=== PATIENT | female | born 1955 | race Caucasian/White ===

== ENCOUNTER 2018-12-15 05:32 | Day surgery (SDC) | payer OTHER ==
[2018-12-15] MEDS: Nozin Nasal Sanitizer NASBOTH SCH ×4 (05:57→21:01)
[2018-12-15] MEDS ORDERED: Gabapentin 300 MG Cap PO ONE (06:15)
[2018-12-15] MEDS ORDERED: Acetaminophen 500 MG Tab PO ONE (06:15)
[2018-12-15] MEDS ORDERED: Povidone-Iodine 10% Soln 118.25 ML Bottle ONE (06:18)
[2018-12-15] MEDS ORDERED: Lactated Ringers 1,000 ML IV SCH (06:30)
[2018-12-15] MEDS ORDERED: Propofol 200 MG/20 ML SDV ONE (07:24)
[2018-12-15] MEDS ORDERED: fentaNYL 100 MCG/2 ML SDV ONE (07:24)
[2018-12-15] MEDS ORDERED: Midazolam 1 MG/ML 2 ML SDV ONE (07:24)
[2018-12-15] MEDS ORDERED: Clindamycin Phosphate 900 MG in Sodium Chloride 0.9% 100 ML IV ONE (07:45)
[2018-12-15] MEDS ORDERED: Dexamethasone 4 MG/ML SDV ONE (08:10)
[2018-12-15] MEDS ORDERED: Ondansetron 4 MG/2 ML SDV ONE (08:10)
[2018-12-15] MEDS ORDERED: Acetaminophen 325 MG Tab PO PRN ×2 (09:24→09:52)
[2018-12-15] MEDS ORDERED: Sodium Chloride 0.9% 1,000 ML IV SCH (09:30)
[2018-12-15] MEDS ORDERED: Acetaminophen/oxyCODONE 325-5 MG Tab PO PRN (09:30)
[2018-12-15] MEDS ORDERED: traMADol 50 MG Tab PO PRN (09:31)
[2018-12-15] MEDS ORDERED: Morphine 2 MG/ML Syringe IVPUSH PRN ×2 (09:32→09:52)
[2018-12-15] MEDS ORDERED: Magnesium Hydroxide 400 MG/5 ML Susp 30 ML Cup PO PRN ×2 (09:33→09:52)
[2018-12-15] MEDS ORDERED: Docusate Sodium 100 MG Cap PO PRN ×2 (09:33→09:52)
[2018-12-15] MEDS: traMADol 50 MG Tab PO PRN ×2 (11:34→18:07)
[2018-12-15] MEDS: Sodium Chloride 0.9% 1,000 ML IV SCH ×2 (11:35→19:38)
--- NOTE | 2018-12-15 11:53 | CR ---
Knee 1V or 2V Rt CLINICAL HISTORY: 2 view FINDINGS: Patient is status post a total knee arthroplasty. Components appear well seated. There is some subcutaneous and intra-articular air. Impression: Status post total right knee arthroplasty
[2018-12-15] MEDS: Acetaminophen/oxyCODONE 325-5 MG Tab PO PRN ×2 (14:28→21:00)
[2018-12-15] MEDS: Metoprolol Succinate 25 MG Tab.ER PO SCH (18:36)
[2018-12-15] MEDS ORDERED: Nozin Nasal Sanitizer NASBOTH SCH (21:00)
[2018-12-15] MEDS: Clindamycin Phosphate 900 MG in Sodium Chloride 0.9% 100 ML IV SCH (21:15)
[2018-12-15] MEDS ORDERED: Ondansetron 4 MG/2 ML SDV IVPUSH PRN (21:32)
[2018-12-15] MEDS ORDERED: Sertraline 50 MG Tab PO ONE (22:22)
[2018-12-16] MEDS: traMADol 50 MG Tab PO PRN ×5 (00:59→22:13)
[2018-12-16] MEDS: Sodium Chloride 0.9% 1,000 ML IV SCH (04:16)
[2018-12-16] MEDS: Clindamycin Phosphate 900 MG in Sodium Chloride 0.9% 100 ML IV SCH ×2 (04:25→12:41)
[2018-12-16] MEDS: Enoxaparin 30 MG/0.3 ML Syringe SUBCUT SCH (08:37)
[2018-12-16] MEDS: Nozin Nasal Sanitizer NASBOTH SCH ×3 (08:37→22:08)
[2018-12-16] MEDS: Sertraline 25 MG Tab PO SCH (08:38)
[2018-12-16] MEDS ORDERED: Enoxaparin 30 MG/0.3 ML Syringe SUBCUT SCH (09:00)
[2018-12-16] MEDS ORDERED: Metoprolol Succinate 25 MG Tab.ER PO SCH (09:00)
[2018-12-16] MEDS ORDERED: Sertraline 25 MG Tab PO SCH ×3 (09:00→21:00)
[2018-12-16] MEDS: Metoprolol Succinate 25 MG Tab.ER PO SCH (09:35)
[2018-12-16] MEDS: Acetaminophen/oxyCODONE 325-5 MG Tab PO PRN (12:40)
[2018-12-17] MEDS: traMADol 50 MG Tab PO PRN (04:15)
[2018-12-17] MEDS: Nozin Nasal Sanitizer NASBOTH SCH (10:13)
[2018-12-17] MEDS: Enoxaparin 30 MG/0.3 ML Syringe SUBCUT SCH (10:15)
[2018-12-17] MEDS: Metoprolol Succinate 25 MG Tab.ER PO SCH (10:16)
[2018-12-17] MEDS: Sertraline 25 MG Tab PO SCH (10:17)
--- NOTE | 2018-12-17 11:29 | PCM.SURGPN ---
- General Info Date of Service: 12/16/18 Date of Surgery/Procedure: 12/15/18 POD#: 1 Post-Op Diagnosis: S/P Right Total Knee Arthroplasty - Review of Systems General: Reports: No Symptoms HEENT: Reports: No Symptoms Pulmonary: Reports: No Symptoms Cardiovascular: Reports: No Symptoms Gastrointestinal: Reports: Nausea Genitourinary: Reports: No Symptoms Musculoskeletal: Reports: Joint Pain Skin: Reports: No Symptoms Neurological: Reports: No Symptoms Psychiatric: Reports: No Symptoms - Patient Data Vitals - Most Recent: Last Vital Signs Temp 37.4 C 12/17/18 10:36 Pulse 84 12/17/18 10:36 Resp 16 12/17/18 10:36 BP 154/72 H 12/17/18 10:36 Pulse Ox 96 12/17/18 10:36 Weight - Most Recent: 114.895 kg I&O - Last 24 Hours: Intake & Output 12/16/18 12/17/18 12/17/18 22:59 06:59 14:59 Intake Total 680 350 Output Total 375 225 200 Balance 305 125 -200 Med Orders - Current: Current Medications Acetaminophen (Tylenol) 650 mg PO Q4H PRN PRN Reason: Pain/Fever Last Admin: 12/16/18 22:42 Dose: 650 mg Bandage/Support Products ( Nasal Bingo Floater) 1 applic NASBOTH BID [facility] Stop: 12/22/18 21:01 Last Admin: 12/17/18 10:13 Dose: 1 applic Docusate Sodium (Colace) 100 mg PO BID PRN PRN Reason: Constipation Last Admin: 12/16/18 22:13 Dose: 100 mg Enoxaparin Sodium (Lovenox) 30 mg SUBCUT DAILY [facility] Last Admin: 12/17/18 10:15 Dose: 30 mg Magnesium Hydroxide (Milk Of Magnesia) 30 ml PO Q8H PRN PRN Reason: Constipation Metoprolol Succinate (Toprol Xl) 25 mg PO DAILY [facility] Last Admin: 12/17/18 10:16 Dose: 25 mg Morphine Sulfate (Morphine) 2 mg IVPUSH Q1H PRN PRN Reason: Pain (severe 7-10) Ondansetron HCl (Zofran) 4 mg IVPUSH Q6H PRN PRN Reason: Nausea/Vomiting Oxycodone/Acetaminophen (Percocet 325-5 Mg) 1 - 2 tab PO Q6H PRN PRN Reason: Pain (severe 7-10) Last Admin: 12/16/18 12:40 Dose: 1 tab Sertraline HCl (Zoloft) 25 mg PO BEDTIME [facility] Last Admin: 12/16/18 22:08 Dose: 25 mg Sertraline HCl (Zoloft) 12.5 mg PO QAM [facility] Last Admin: 12/17/18 10:17 Dose: 12.5 mg Tramadol HCl (Ultram) 50 mg PO Q4H PRN PRN Reason: Pain (mild 1-3) Last Admin: 12/17/18 04:15 Dose: 50 mg Discontinued Medications Acetaminophen (Tylenol Extra Strength) 1,000 mg PO ONETIME ONE Stop: 12/15/18 06:16 Last Admin: 12/15/18 05:56 Dose: 1,000 mg Acetaminophen (Tylenol) 650 mg PO Q4H PRN PRN Reason: Pain/Fever Bandage/Support Products ( Nasal Bingo Floater) 1 applic NASBOTH BID [facility] Last Admin: 12/16/18 08:39 Dose: 1 applic Bandage/Support Products ( Nasal Bingo Floater) 1 applic NASBOTH BID [facility] Stop: 12/22/18 21:01 Dexamethasone (Dexamethasone) Confirm Administered Dose 4 mg .ROUTE .STK-MED ONE Stop: 12/15/18 08:11 Docusate Sodium (Colace) 100 mg PO BID PRN PRN Reason: Constipation Enoxaparin Sodium (Lovenox) 30 mg SUBCUT DAILY [facility] Fentanyl (Sublimaze) Confirm Administered Dose 100 mcg .ROUTE .STK-MED ONE Stop: 12/15/18 07:25 Gabapentin (Neurontin) 300 mg PO ONETIME ONE Stop: 12/15/18 06:16 Last Admin: 12/15/18 05:57 Dose: 300 mg Lactated Ringer's (Ringers, Lactated) 1,000 mls @ 75 mls/hr IV ASDIRECTED [facility] Last Admin: 12/15/18 05:57 Dose: 75 mls/hr Clindamycin Phosphate 900 mg/ (Sodium Chloride) 106 mls @ 200 mls/hr IV ONETIME ONE Stop: 12/15/18 08:16 Last Admin: 12/15/18 07:40 Dose: 200 mls/hr Sodium Chloride (Normal Saline) 1,000 mls @ 125 mls/hr IV ASDIRECTED [facility] Sodium Chloride (Normal Saline) 1,000 mls @ 125 mls/hr IV ASDIRECTED [facility] Last Admin: 12/16/18 04:16 Dose: 125 mls/hr Clindamycin Phosphate 900 mg/ (Sodium Chloride) 106 mls @ 200 mls/hr IV Q8H [facility] Stop: 12/16/18 13:32 Last Admin: 12/16/18 12:41 Dose: 200 mls/hr Magnesium Hydroxide (Milk Of Magnesia) 30 ml PO Q8H PRN PRN Reason: Constipation Metoprolol Succinate (Toprol Xl) 25 mg PO DAILY [facility] Midazolam HCl (Versed 1 Mg/Ml) Confirm Administered Dose 2 mg .ROUTE .STK-MED ONE Stop: 12/15/18 07:25 Morphine Sulfate (Morphine) 2 mg IVPUSH Q1H PRN PRN Reason: Pain (severe 7-10) Ondansetron HCl (Zofran) Confirm Administered Dose 4 mg .ROUTE .STK-MED ONE Stop: 12/15/18 08:11 Oxycodone/Acetaminophen (Percocet 325-5 Mg) 0 tab PO Q6H PRN PRN Reason: Pain (severe 7-10) Povidone Iodine (Betadine 10% Soln) Confirm Administered Dose 1 ml .ROUTE .STK- MED ONE Stop: 12/15/18 06:19 Last Admin: 12/15/18 08:22 Dose: 1 ml Propofol (Diprivan 20 Ml) Confirm Administered Dose 200 mg .ROUTE .STK-MED ONE Stop: 12/15/18 07:25 Sertraline HCl (Zoloft) 75 mg PO DAILY [facility] Sertraline HCl (Zoloft) 75 mg PO DAILY [facility] Sertraline HCl (Zoloft) 25 mg PO ONETIME ONE Stop: 12/15/18 22:23 Last Admin: 12/15/18 22:30 Dose: 25 mg Tramadol HCl (Ultram) 50 mg PO Q4H PRN PRN Reason: Pain (mild 1-3) - Exam Wound/Incisions: Dressing Dry and Intact General: Alert, Oriented HEENT: Pupils Equal Neck: Supple Cardiovascular: Regular Rate, Regular Rhythm GI/Abdominal Exam: Normal Bowel Sounds, Soft, Non-Tender, No Organomegaly, No Distention, No Abnormal Bruit, No Mass, Pelvis Stable Extremities: Joint Swelling, Other (Angela's negative) Skin: Warm, Dry, Intact Neurological: No New Focal Deficit Psy/Mental Status: Alert, Normal Affect, Normal Mood - Problem List & Annotations (1) Status post total right knee replacement SNOMED Code(s): 9309120816281, 1455952926416 Code(s): Z96.651 - PRESENCE OF RIGHT ARTIFICIAL KNEE JOINT Status: Acute Current Visit: Yes (2) Osteoarthritis of right knee SNOMED Code(s): 817326321779942 Code(s): M17.11 - UNILATERAL PRIMARY OSTEOARTHRITIS, RIGHT KNEE Status: Acute Current Visit: Yes Qualifiers: Osteoarthritis type: primary Qualified Code(s): M17.11 - Unilateral primary osteoarthritis, right knee - Problem List Review Problem List Initiated/Reviewed/Updated: Yes - My Orders Last 24 Hours: Active Orders 24 hr Category Date Time Status Admission Status [Patient Status] [ADT] Routine ADT 12/16/18 16:30 Active Ready for Discharge [RC] PER UNIT ROUTINE Care 12/17/18 09:28 Active Sertraline [Zoloft] Med 12/16/18 21:00 Active 25 mg PO BEDTIME Medication Orders Acetaminophen (Tylenol) 650 mg PO Q4H PRN PRN Reason: Pain/Fever Last Admin: 12/16/18 22:42 Dose: 650 mg Bandage/Support Products ( Nasal Bingo Floater) 1 applic NASBOTH BID [facility] Stop: 12/22/18 21:01 Last Admin: 12/17/18 10:13 Dose: 1 applic Admin: 12/16/18 22:08 Dose: 1 applic Admin: 12/16/18 08:37 Dose: Admin: 12/15/18 21:01 Dose: Not Given Docusate Sodium (Colace) 100 mg PO BID PRN PRN Reason: Constipation Last Admin: 12/16/18 22:13 Dose: 100 mg Enoxaparin Sodium (Lovenox) 30 mg SUBCUT DAILY [facility] Last Admin: 12/17/18 10:15 Dose: 30 mg Admin: 12/16/18 08:37 Dose: 30 mg Magnesium Hydroxide (Milk Of Magnesia) 30 ml PO Q8H PRN PRN Reason: Constipation Metoprolol Succinate (Toprol Xl) 25 mg PO DAILY [facility] Last Admin: 12/17/18 10:16 Dose: 25 mg Admin: 12/16/18 09:35 Dose: 25 mg Admin: 12/15/18 18:36 Dose: 25 mg Morphine Sulfate (Morphine) 2 mg IVPUSH Q1H PRN PRN Reason: Pain (severe 7-10) Ondansetron HCl (Zofran) 4 mg IVPUSH Q6H PRN PRN Reason: Nausea/Vomiting Oxycodone/Acetaminophen (Percocet 325-5 Mg) 1 - 2 tab PO Q6H PRN PRN Reason: Pain (severe 7-10) Last Admin: 12/16/18 12:40 Dose: 1 tab Admin: 12/15/18 21:00 Dose: 1 tab Admin: 12/15/18 14:28 Dose: 2 tab Sertraline HCl (Zoloft) 25 mg PO BEDTIME [facility] Last Admin: 12/16/18 22:08 Dose: 25 mg Sertraline HCl (Zoloft) 12.5 mg PO QAM [facility] Last Admin: 12/17/18 10:17 Dose: 12.5 mg Admin: 12/16/18 08:38 Dose: 12.5 mg Tramadol HCl (Ultram) 50 mg PO Q4H PRN PRN Reason: Pain (mild 1-3) Last Admin: 12/17/18 04:15 Dose: 50 mg Admin: 12/16/18 22:13 Dose: 50 mg Admin: 12/16/18 15:37 Dose: 50 mg Admin: 12/16/18 10:25 Dose: 50 mg Admin: 12/16/18 05:52 Dose: 50 mg Admin: 12/16/18 00:59 Dose: 50 mg Admin: 12/15/18 18:07 Dose: 50 mg Admin: 12/15/18 11:34 Dose: 50 mg - Assessment Assessment (Free Text/Narrative):: Tolerated procedure well, no complications, mild nausea, pain fairly well controlled. - Plan Plan (Free Text/Narrative):: Up with PT today, D/C Gay, saline lock IV Doing very well, anticipate discharge tomorrow morning with outpatient PT.
--- NOTE | 2018-12-17 11:35 | PCM.DCSUM1 ---
Discharge Summary - Hospital Course Free Text/Narrative:: 63 year old female admitted for right TKA. Diagnosis: Stroke: No - Discharge Data Discharge Date: 12/17/18 Discharge Disposition: Home, Self-Care 01 Condition: Good - Discharge Diagnosis/Problem(s) (1) Status post total right knee replacement SNOMED Code(s): 8648641345904, 0517104550442 ICD Code: Z96.651 - PRESENCE OF RIGHT ARTIFICIAL KNEE JOINT Status: Acute Current Visit: Yes (2) Osteoarthritis of right knee SNOMED Code(s): 493913405052292 ICD Code: M17.11 - UNILATERAL PRIMARY OSTEOARTHRITIS, RIGHT KNEE Status: Acute Current Visit: Yes Qualifiers: Osteoarthritis type: primary Qualified Code(s): M17.11 - Unilateral primary osteoarthritis, right knee - Patient Summary/Data Operative Procedure(s) Performed: Right TKA Consults: Consultations 12/15/18 09:24 PT Evaluation and Treatment [CONS] Routine Please Evaluate and Treat. PT Reason for Consult: Ambulation Discharge Disposition: Home w Home Health Special Instructions: WBAT, ROM This query below is only for informational purposes and is not editable. 12/15/18 09:34 Consult to Occupational Therapy [OT Evaluation and Treatment] [CONS] Routine Please Evaluate and Treat. OT Reason for Consult: ADL's Pending Discharge: Yes Discharge Disposition: Home w Home Health Special Instructions: ADLs and adaptive devices This query below is only for informational purposes and is not editable. Admission Diagnosis/Problem: Osteoarthritis Hospital Course: Underwent Right TKA without complication. Transitioned to po pain meds, mild nausea. Tolerated PT up in halls and transfers from bed. Dressing removed post op day #2, no drainage. Discharged to home, follow up in two weeks, light dressing over incision as needed. Home with Tramadol and Lovenox. - Patient Instructions Diet: Usual Diet as Tolerated Activity: Apply Ice, Full Weight Bearing Showering/Bathing: May Shower Wound/Incision Care: Keep Operative Site/Wound Site Clean and Dry Notify Provider of: Increased Pain, Swelling and Redness, Drainage - Discharge Plan *PRESCRIPTION DRUG MONITORING PROGRAM REVIEWED*: No *COPY OF PRESCRIPTION DRUG MONITORING REPORT IN PATIENT LISA: No Home Medications: Home Meds Sertraline [Zoloft] 25 mg PO QPM 10/01/18 [History] Metoprolol Succinate 25 mg PO DAILY 12/15/18 [History] Sertraline [Zoloft] 12.5 mg PO QAM 12/15/18 [History] Other Amb Orders: PT Evaluation and Treatment [CONS] Time Frame: 3 Days, Location: None Selected PT Evaluation and Treatment [CONS] Time Frame: 2 Days, Location: None Selected Oxygen Therapy Mode: Room Air Patient Handouts: Total Knee Replacement, Care After, [id number] Referrals: Amy Kat, PT [Physical Therapist] - 12/19/18 9:00 am (Please arrive 30 minutes jovi to register for your appointment. Check in at the ER registration desk.) Jose Valdovinos MD [Physician] - 12/30/18 9:30 am (Please arrive 15 minutes ealry for your appointment) - Discharge Summary/Plan Comment DC Time >30 min.: Yes (Approx 40 minutes) - General Info Functional Status: Reports: Pain Controlled, Tolerating Diet, Ambulating, Urinating - Review of Systems General: Reports: No Symptoms HEENT: Reports: No Symptoms Pulmonary: Reports: No Symptoms Cardiovascular: Reports: No Symptoms Gastrointestinal: Reports: No Symptoms Genitourinary: Reports: No Symptoms Musculoskeletal: Reports: Joint Pain Skin: Reports: No Symptoms Neurological: Reports: No Symptoms Psychiatric: Reports: No Symptoms - Patient Data Vitals - Most Recent: Last Vital Signs Temp 37.4 C 12/17/18 10:36 Pulse 84 12/17/18 10:36 Resp 16 12/17/18 10:36 BP 154/72 H 12/17/18 10:36 Pulse Ox 96 12/17/18 10:36 Weight - Most Recent: 114.895 kg I&O - Last 24 hours: Intake & Output 12/16/18 12/17/18 12/17/18 22:59 06:59 14:59 Intake Total 680 350 Output Total 375 225 200 Balance 305 125 -200 Med Orders - Current: Current Medications Acetaminophen (Tylenol) 650 mg PO Q4H PRN PRN Reason: Pain/Fever Last Admin: 12/16/18 22:42 Dose: 650 mg Bandage/Support Products ( Nasal Surgical Resident) 1 applic NASBOTH BID [facility] Stop: 12/22/18 21:01 Last Admin: 12/17/18 10:13 Dose: 1 applic Docusate Sodium (Colace) 100 mg PO BID PRN PRN Reason: Constipation Last Admin: 12/16/18 22:13 Dose: 100 mg Enoxaparin Sodium (Lovenox) 30 mg SUBCUT DAILY [facility] Last Admin: 12/17/18 10:15 Dose: 30 mg Magnesium Hydroxide (Milk Of Magnesia) 30 ml PO Q8H PRN PRN Reason: Constipation Metoprolol Succinate (Toprol Xl) 25 mg PO DAILY [facility] Last Admin: 12/17/18 10:16 Dose: 25 mg Morphine Sulfate (Morphine) 2 mg IVPUSH Q1H PRN PRN Reason: Pain (severe 7-10) Ondansetron HCl (Zofran) 4 mg IVPUSH Q6H PRN PRN Reason: Nausea/Vomiting Oxycodone/Acetaminophen (Percocet 325-5 Mg) 1 - 2 tab PO Q6H PRN PRN Reason: Pain (severe 7-10) Last Admin: 12/16/18 12:40 Dose: 1 tab Sertraline HCl (Zoloft) 25 mg PO BEDTIME [facility] Last Admin: 12/16/18 22:08 Dose: 25 mg Sertraline HCl (Zoloft) 12.5 mg PO QAM [facility] Last Admin: 12/17/18 10:17 Dose: 12.5 mg Tramadol HCl (Ultram) 50 mg PO Q4H PRN PRN Reason: Pain (mild 1-3) Last Admin: 12/17/18 04:15 Dose: 50 mg Discontinued Medications Acetaminophen (Tylenol Extra Strength) 1,000 mg PO ONETIME ONE Stop: 12/15/18 06:16 Last Admin: 12/15/18 05:56 Dose: 1,000 mg Acetaminophen (Tylenol) 650 mg PO Q4H PRN PRN Reason: Pain/Fever Bandage/Support Products ( Nasal Surgical Resident) 1 applic NASBOTH BID [facility] Last Admin: 12/16/18 08:39 Dose: 1 applic Bandage/Support Products ( Nasal Surgical Resident) 1 applic NASBOTH BID [facility] Stop: 12/22/18 21:01 Dexamethasone (Dexamethasone) Confirm Administered Dose 4 mg .ROUTE .STK-MED ONE Stop: 12/15/18 08:11 Docusate Sodium (Colace) 100 mg PO BID PRN PRN Reason: Constipation Enoxaparin Sodium (Lovenox) 30 mg SUBCUT DAILY [facility] Fentanyl (Sublimaze) Confirm Administered Dose 100 mcg .ROUTE .STK-MED ONE Stop: 12/15/18 07:25 Gabapentin (Neurontin) 300 mg PO ONETIME ONE Stop: 12/15/18 06:16 Last Admin: 12/15/18 05:57 Dose: 300 mg Lactated Ringer's (Ringers, Lactated) 1,000 mls @ 75 mls/hr IV ASDIRECTED [facility] Last Admin: 12/15/18 05:57 Dose: 75 mls/hr Clindamycin Phosphate 900 mg/ (Sodium Chloride) 106 mls @ 200 mls/hr IV ONETIME ONE Stop: 12/15/18 08:16 Last Admin: 12/15/18 07:40 Dose: 200 mls/hr Sodium Chloride (Normal Saline) 1,000 mls @ 125 mls/hr IV ASDIRECTED [facility] Sodium Chloride (Normal Saline) 1,000 mls @ 125 mls/hr IV ASDIRECTED [facility] Last Admin: 12/16/18 04:16 Dose: 125 mls/hr Clindamycin Phosphate 900 mg/ (Sodium Chloride) 106 mls @ 200 mls/hr IV Q8H [facility] Stop: 12/16/18 13:32 Last Admin: 12/16/18 12:41 Dose: 200 mls/hr Magnesium Hydroxide (Milk Of Magnesia) 30 ml PO Q8H PRN PRN Reason: Constipation Metoprolol Succinate (Toprol Xl) 25 mg PO DAILY [facility] Midazolam HCl (Versed 1 Mg/Ml) Confirm Administered Dose 2 mg .ROUTE .STK-MED ONE Stop: 12/15/18 07:25 Morphine Sulfate (Morphine) 2 mg IVPUSH Q1H PRN PRN Reason: Pain (severe 7-10) Ondansetron HCl (Zofran) Confirm Administered Dose 4 mg .ROUTE .STK-MED ONE Stop: 12/15/18 08:11 Oxycodone/Acetaminophen (Percocet 325-5 Mg) 0 tab PO Q6H PRN PRN Reason: Pain (severe 7-10) Povidone Iodine (Betadine 10% Soln) Confirm Administered Dose 1 ml .ROUTE .STK- MED ONE Stop: 12/15/18 06:19 Last Admin: 12/15/18 08:22 Dose: 1 ml Propofol (Diprivan 20 Ml) Confirm Administered Dose 200 mg .ROUTE .STK-MED ONE Stop: 12/15/18 07:25 Sertraline HCl (Zoloft) 75 mg PO DAILY [facility] Sertraline HCl (Zoloft) 75 mg PO DAILY [facility] Sertraline HCl (Zoloft) 25 mg PO ONETIME ONE Stop: 12/15/18 22:23 Last Admin: 12/15/18 22:30 Dose: 25 mg Tramadol HCl (Ultram) 50 mg PO Q4H PRN PRN Reason: Pain (mild 1-3) - Exam General: Reports: Alert, Oriented HEENT: Reports: Pupils Equal, Pupils Reactive, EOMI, Mucous Membr. Moist/[place] Neck: Reports: Supple Lungs: Reports: Clear to Auscultation, Normal Respiratory Effort Cardiovascular: Reports: Regular Rate, Regular Rhythm GI/Abdominal Exam: Normal Bowel Sounds, Soft, Non-Tender, No Organomegaly, No Distention, No Abnormal Bruit, No Mass, Pelvis Stable (Female) Exam: Deferred Rectal (Female) Exam: Deferred Back Exam: Reports: Normal Inspection, Full Range of Motion Extremities: No Pedal Edema, Normal Capillary Refill, Other (mild swelling) Skin: Reports: Warm, Dry, Intact Wound/Incisions: Reports: Healing Well, No Drainage Neurological: Reports: No New Focal Deficit Psy/Mental Status: Reports: Alert, Normal Affect, Normal Mood
--- NOTE | 2018-12-17 13:05 | OR ---
DATE OF PROCEDURE: 12/15/2018 PREOPERATIVE DIAGNOSIS: Osteoarthritis, right knee. POSTOPERATIVE DIAGNOSIS: Osteoarthritis, right knee. PROCEDURES: Right total knee arthroplasty using [employer] components with a size C tibia, size 4 femur, 12 mm tibial polyethylene, and 29 mm patella. ANESTHESIA: Spinal with sedation. INDICATIONS: Sena is a 63-year-old female with a history of progressive pain in her right knee for the past several months. X-rays show predominantly medial joint space collapse. She has failed conservative treatment and now presents for right total knee arthroplasty. Risks, benefits, and potential complications of the procedure were discussed. DESCRIPTION OF PROCEDURE: After adequate anesthesia was obtained, the patient was placed supine with a tourniquet about the right upper thigh. Right leg was prepped and draped in a sterile fashion. Leg was exsanguinated and tourniquet inflated to 300 mmHg. A longitudinal incision was made over the anterior aspect of the knee and carried down through the subcutaneous tissues. Medial parapatellar arthrotomy was performed. A portion of the fat pad was excised along with the anterior horn of the medial meniscus and a medial release was performed. The patella was everted, and the posterior aspect of the patella was resected with an oscillating saw. The knee was flexed, and the intramedullary canal of the femur was drilled. Intramedullary guide was placed. Distal femoral cut was then made. The femur was sized to a #4 component. #4 cutting jig was secured and remaining cuts were then made. Trial femoral component was placed and an intercondylar notch cut was made for a posterior cruciate sacrificing component. The femoral trial was removed. The extramedullary tibial alignment jig was placed and secured to the femur. Proximal tibia was resected with an oscillating saw. Remaining medial and lateral meniscus excised. The tibia was then sized to a size C component. This was pinned in place and tibial preparation was completed. Femoral trial was placed once again, and the knee was then taken through range of motion with a 10-mm insert, which showed a little bit of play, followed by a 12-mm insert. Patella was resurfaced with a 29-mm patellar button, which did have just a very slight overhang. Her patella was quite small. The patella tracked somewhat laterally and a lateral release was performed. The trials were then removed. The knee was thoroughly irrigated with the pulse lavage. The surfaces were dried and components were then cemented in place. The knee was held in full extension with a trial insert as the cement cured. It was again trialed with a 10, 11 and 12-mm poly and showed excess varus-valgus instability and 13 and 14 mm trials were then placed. The 14 mm provide good balance and was selected. The trial was removed. The knee was irrigated and a polyethylene was locked into position. Knee was then irrigated with dilute Betadine solution followed by pulse lavage. The capsule was then closed with a #1 Ethibond in interrupted fashion. Skin was closed with 2-0 Vicryl and a running 3-0 Monocryl. Steri-Strips were applied. Light compressive dressing was then placed. The patient tolerated the procedure very well and was taken from the operating room in a stable condition. Jose Valdovinos MD /[id number]
[2018-12-17] MEDS ORDERED: Magnesium Hydroxide 400 MG/5 ML Susp 30 ML Cup PO PRN ×2 (15:45→15:46)
[2018-12-17] MEDS ORDERED: Morphine 2 MG/ML Syringe IVPUSH PRN ×2 (15:45→15:46)
== END 2018-12-17 11:30 | disposition home or self-care (01) ==
LOC: INTOOBSV 05:32 → UNDOADMOB 05:32 → JP.SDS 05:32 → JP.SDSSCHI 05:32 → EDSTATUS 07:30 → JP.2SS 09:24 → JP.SDSSCHI 10:02 → JP.2SS 10:02 → JP.SDS 12-17 11:30 → UNDODISOB 12-17 11:30
PROVIDERS: ATTEND Specialist
DX: M17.11 Unilateral primary osteoarthritis, right knee (principal); I10 Essential (primary) hypertension; F32.9 Major depressive disorder, single episode, unspecified; G47.33 Obstructive sleep apnea (adult) (pediatric); Z88.1 Allergy status to other antibiotic agents; Z79.899 Other long term (current) drug therapy
CPT/HCPCS: 27447; 36415; 73560; 80048; 85027; 86850; 86900; 86901; 97110; 97161; 97165; 97530; 97535; A9270; C1713; J1100; J1650; J2250; J2405; J2704; J3010; J3490; J7030; J7120; C1776

== ENCOUNTER 2019-01-28 21:07 | Inpatient (IN) | payer OTHER ==
--- NOTE | 2019-01-28 21:36 | EDM.PDOC ---
ED HPI GENERAL MEDICAL PROBLEM - General Chief Complaint: Lower Extremity Injury/Pain Stated Complaint: FALL VIA NORTH Time Seen by Provider: 01/28/19 21:20 Source of Information: Reports: Patient, EMS History Limitations: Reports: No Limitations - History of Present Illness INITIAL COMMENTS - FREE TEXT/NARRATIVE: 63-year-old female was leaving a local restaurant when she stumbled and fell onto her right knee. She had a total knee repair a month and a half ago. It's been healing well. Now she has significant pain, she said she feels something "moving" in there. Unable to bear weight. Brought in by ambulance. 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 Pain Score (Numeric/FACES): 2 - Related Data Allergies Allergy/AdvReac Type Severity Reaction Status Date / Time cefdinir [From Omnicef] Allergy Nausea and Verified 01/28/19 21:21 Vomiting hydrocodone bitartrate Allergy Nausea and Verified 01/28/19 21:21 [From Vicodin] Vomiting levofloxacin [From Levaquin] Allergy Muscle Verified 01/28/19 21:21 Aches minocycline Allergy Rash Verified 01/28/19 21:21 Sulfa (Sulfonamide Allergy Rash Verified 01/28/19 21:21 Antibiotics) Home Meds: Home Meds Sertraline [Zoloft] 25 mg PO QPM 10/01/18 [History] Metoprolol Succinate 25 mg PO DAILY 12/15/18 [History] Sertraline [Zoloft] 12.5 mg PO QAM 12/15/18 [History] Past Medical History 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: Reports: Hypertension 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: Musculoskeletal History: Reports: Fracture, Other (See Below) Other Musculoskeletal History: s/p RTKA 12/15/18 Neurological History: Reports: Migraines, Vertigo, Other (See Below) Other Neuro History: herniated disc with PT, trigger point injections, cortisone shots, and prolotherapy Psychiatric History: Reports: Depression Endocrine/Metabolic History: Reports: Obesity/BMI 30+ - Infectious Disease History Infectious Disease History: Reports: Mumps - Past Surgical History GI Surgical History: Reports: Colonoscopy Female Surgical History: Reports: Tubal Ligation, Other (See Below) Other Female Surgeries/Procedures: uterine biopsy, lumpectomy of left breast Musculoskeletal Surgical History: Reports: Arthroscopic Knee, Knee Replacement, Other (See Below) Other Musculoskeletal Surgeries/Procedures:: right ankle Social & Family History - Family History Family Medical History: Noncontributory - Tobacco Use Smoking Status *Q: Never Smoker - Caffeine Use Caffeine Use: Reports: None - Recreational Drug Use Recreational Drug Use: No Review of Systems - Review of Systems Review Of Systems: See Below Constitutional: Denies: Fever Respiratory: Reports: No Symptoms Cardiovascular: Reports: No Symptoms GI/Abdominal: Reports: No Symptoms Skin: Reports: Bruising (She has some bruising of the right foot from dropping something on her foot several days ago) Neurological: Denies: Paresthesia ED EXAM, GENERAL - Physical Exam Exam: See Below Exam Limited By: No Limitations General Appearance: Alert, No Apparent Distress (The pain medications received from the ambulance have helped) Respiratory/Chest: No Respiratory Distress Extremities: Other (Extremities are morbidly obese. She has a well-healed surgical scar across the anterior aspect of the right knee. On palpation she is very tender to both the lateral and medial aspect of the knee and has increased pain with varus and valgus stress. Palpation of the patella is nontender. There is no obvious deformity.) Course - Vital Signs Last Recorded V/S: Last Vital Signs Temp 95.8 F 01/28/19 21:17 Pulse 78 01/28/19 21:17 Resp 16 01/28/19 21:17 BP 144/71 H 01/28/19 21:17 Pulse Ox 92 L 01/28/19 21:17 - Orders/Labs/Meds Orders: Medication Orders Sodium Chloride (Normal Saline) 1,000 mls @ 150 mls/hr IV ASDIRECTED DOT Morphine Sulfate (Morphine) 2 mg IVPUSH Q4H PRN PRN Reason: Pain (severe 7-10) Pantoprazole Sodium (Protonix Iv) 40 mg IV Q24H DOT Senna/Docusate Sodium (Senna Plus) 1 tab PO BID PRN PRN Reason: Constipation Meds: Medications Generic Name Dose Route Start Last Admin Trade Name Freq PRN Reason Stop Dose Admin Sodium Chloride 1,000 mls @ 150 mls/hr 01/28/19 22:30 Normal Saline IV ASDIRECTED DOT Morphine Sulfate 2 mg 01/28/19 22:26 Morphine IVPUSH Q4H PRN Pain (severe 7-10) Pantoprazole Sodium 40 mg 01/28/19 22:30 Protonix Iv IV Q24H [facility] Senna/Docusate Sodium 1 tab 01/28/19 22:26 Senna Plus PO BID PRN Constipation Discontinued Medications Generic Name Dose Route Start Last Admin Trade Name Freq PRN Reason Stop Dose Admin Ondansetron HCl 4 mg 01/28/19 22:24 01/28/19 22:27 Zofran IVPUSH 01/28/19 22:25 4 mg ONETIME ONE Administration Ondansetron HCl Confirm 01/28/19 22:25 01/28/19 22:33 Zofran Administered 01/28/19 22:26 Not Given Dose 4 [address] .[address] .[facility] ONE - Re-Assessments/Exams Free Text/Narrative Re-Assessment/Exam: 01/28/19 21:36 A right knee x-ray was obtained. 01/28/19 22:05 X-ray confirmed a displaced distal femur fracture. Dr. Valdovinos reviewed the films and is requesting the patient be admitted for surgery tomorrow. Dr. Oliva was consulted for the admission as he is on-call for primary care. He kindly agreed to come in and see the patient and get her admitted. Departure - Departure Time of Disposition: 22:43 Disposition: Admitted As Inpatient 67 Clinical Impression: Femur fracture, right Qualifiers: Encounter type: initial encounter Femur location: distal, unspecified portion Fracture type: closed Fracture morphology: unspecified fracture morphology Qualified Code(s): S72.401A - Unspecified fracture of lower end of right femur, initial encounter for closed fracture - Discharge Information
--- NOTE | 2019-01-28 22:19 | CRLCR ---
INDICATION: Trauma TECHNIQUE: Two views right knee COMPARISON: None FINDINGS: Bones: Displaced fracture distal shaft of the femur at the margin of the femoral prosthetic component. Joint spaces: Unremarkable. Soft tissues: Anterior soft tissue edema IMPRESSION: Displaced fracture distal shaft of the femur which extends to the margin of the femoral prosthetic component. Dictated by Mark Guthrie MD @ 01/28/2019 10:17:00 PM Dictated by: Mark Guthrie MD @ 01/28/2019 22:17:05 (Electronically Signed)
[2019-01-28] MEDS ORDERED: Ondansetron 4 MG/2 ML SDV IVPUSH ONE (22:24)
[2019-01-28] MEDS ORDERED: Ondansetron 4 MG/2 ML SDV ONE (22:25)
[2019-01-28] MEDS ORDERED: Morphine 2 MG/ML Syringe IVPUSH PRN (22:26)
--- NOTE | 2019-01-28 22:26 | PCM.HP.2 ---
H&P History of Present Illness - General Date of Service: 01/28/19 Source of Information: Patient History Limitations: Reports: No Limitations - History of Present Illness Initial Comments - Free Text/Narative: 63-year-old female with past medical history of hypertension, anxiety, depression came to the ED with concerns of fall. Patient tripped herself fall on her left knee. With the concerns patient came to the ED. Patient x-ray showed displaced fracture of lower shaft of left femur. Patient recently had knee replacement surgery in the left lower extremity 3 weeks prior to the visit. Patient has been following with orthopedic team. Patient has intermittent nausea denies any vomiting. Responded with Zofran medication. Patient is a full code. Other review of systems are not significant right knee Pain Score (Numeric/FACES): 2 - Related Data Allergies/Adverse Reactions: Allergies Allergy/AdvReac Type Severity Reaction Status Date / Time cefdinir [From Omnicef] Allergy Nausea and Verified 01/28/19 21:21 Vomiting hydrocodone bitartrate Allergy Nausea and Verified 01/28/19 21:21 [From Vicodin] Vomiting levofloxacin [From Levaquin] Allergy Muscle Verified 01/28/19 21:21 Aches minocycline Allergy Rash Verified 01/28/19 21:21 Sulfa (Sulfonamide Allergy Rash Verified 01/28/19 21:21 Antibiotics) Home Medications: Home Meds Sertraline [Zoloft] 25 mg PO QPM 10/01/18 [History] Metoprolol Succinate 25 mg PO DAILY 12/15/18 [History] Sertraline [Zoloft] 12.5 mg PO QAM 12/15/18 [History] Past Medical History 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: Reports: Hypertension 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: Musculoskeletal History: Reports: Fracture, Other (See Below) Other Musculoskeletal History: s/p RTKA 12/15/18 Neurological History: Reports: Migraines, Vertigo, Other (See Below) Other Neuro History: herniated disc with PT, trigger point injections, cortisone shots, and prolotherapy Psychiatric History: Reports: Depression Endocrine/Metabolic History: Reports: Obesity/BMI 30+ - Infectious Disease History Infectious Disease History: Reports: Mumps - Past Surgical History GI Surgical History: Reports: Colonoscopy Female Surgical History: Reports: Tubal Ligation, Other (See Below) Other Female Surgeries/Procedures: uterine biopsy, lumpectomy of left breast Musculoskeletal Surgical History: Reports: Arthroscopic Knee, Knee Replacement, Other (See Below) Other Musculoskeletal Surgeries/Procedures:: right ankle Social & Family History - Family History Family Medical History: Noncontributory - Tobacco Use Smoking Status *Q: Never Smoker - Caffeine Use Caffeine Use: Reports: None - Recreational Drug Use Recreational Drug Use: No H&P Review of Systems - Review of Systems: Review Of Systems: See Below General: Denies: Fever, Chills, Malaise Pulmonary: Denies: Shortness of Breath, Wheezing, Pleuritic Chest Pain, Cough, Sputum Cardiovascular: Denies: Chest Pain, Palpitations, Dyspnea on Exertion, Orthopnea Gastrointestinal: Denies: Abdominal Pain, Anorexia, Black Stool, Bloody Stool Genitourinary: Denies: Dysuria, Frequency, Burning Musculoskeletal: Reports: Leg Pain, Joint Pain, Muscle Pain. Denies: Neck Pain , Shoulder Pain, Arm Pain Skin: Denies: Cyanosis, Jaundice Psychiatric: Denies: Confusion, Depression Neurological: Denies: Confusion Hematologic/Lymphatic: Denies: Anemia Exam - Exam Exam: See Below - Vital Signs Vital Signs: Last Vital Signs Temp 35.4 C 01/28/19 21:17 Pulse 78 01/28/19 21:17 Resp 16 01/28/19 21:17 BP 144/71 H 01/28/19 21:17 Pulse Ox 92 L 01/28/19 21:17 Weight: 113.398 kg - Exam General: Alert, Oriented Neck: Supple, Trachea Midline Lungs: Clear to Auscultation, Normal Respiratory Effort Cardiovascular: Regular Rate, Regular Rhythm GI/Abdominal Exam: Normal Bowel Sounds, Soft, Non-Tender Back Exam: Normal Inspection Extremities: Limited Range of Motion. No: Non-Tender, Pallor Skin: Warm, Dry, Intact Neurological: Cranial Nerves Intact Neuro Extensive - Mental Status: Alert, Oriented x3, Normal Mood/Affect - Patient Data Result Diagrams: 01/28/19 22:48 01/28/19 22:48 Problem List Initiated/Reviewed/Updated: Yes Orders Last 24hrs: Active Orders 24 hr Category Date Time Status Ondansetron [Zofran] Med 01/28/19 22:24 Once 4 mg IVPUSH ONETIME ONE Medication Orders Ondansetron HCl (Zofran) 4 mg IVPUSH ONETIME ONE Stop: 01/28/19 22:25 Assessment/Plan Comment:: 63-year-old female with past medical history of hypertension, anxiety, depression came to the ED with concerns of fall and diagnosed with displaced fracture of lower shaft of left femur and admitted into the hospital and inpatient status. Pain control with morphine 2 mg every 4 hours as needed Zofran, Phenergan for nausea as needed Orthopedic evaluation in the morning We will hold on DVT prophylaxis at this point We will continue metoprolol, Zofran home medications CBC CMP results are at baseline. GI prophylaxis pantoprazole 40 mg IV once daily DVT prophylaxis will start from tomorrow heparin 5000 every 8 hourly CODE STATUS full code Rashid catheter placed Inpatient status.
[2019-01-28] MEDS ORDERED: Metoprolol Succinate 25 MG Tab.ER PO SCH (23:15)
[2019-01-28] MEDS: Sodium Chloride 0.9% 1,000 ML IV SCH (23:30)
[2019-01-28] MEDS: Sertraline 25 MG Tab PO SCH (23:33)
[2019-01-28] MEDS: Pantoprazole 40 MG Vial IV SCH (23:33)
[2019-01-28] MEDS ORDERED: Promethazine 6.25 MG in Sodium Chloride 0.9% 50 ML IV PRN (23:40)
[2019-01-29] MEDS: Sodium Chloride 0.9% 1,000 ML IV SCH ×3 (05:55→15:58)
[2019-01-29] MEDS: Sertraline 25 MG Tab PO SCH ×2 (09:33→21:17)
--- NOTE | 2019-01-29 10:48 | PCM.PN ---
- General Info Date of Service: 01/29/19 Subjective Update: Ms. Sharif is a 63-year-old woman who was admitted through the emergency department last night after experiencing a fall with severe right thigh pain. She is status post total right knee arthroplasty done at the end of November. She had been recovering from that surgery and doing fairly well when she fell last night and experienced immediate pain in her right thigh. On evaluation in the emergency department was found to have a right femur fracture. Functional Status: Denies: Ambulating - Review of Systems General: Reports: No Symptoms Pulmonary: Reports: No Symptoms Cardiovascular: Reports: No Symptoms Gastrointestinal: Reports: No Symptoms Musculoskeletal: Reports: Leg Pain - Patient Data Vitals - Most Recent: Last Vital Signs Temp 97.8 F 01/29/19 07:57 Pulse 74 01/29/19 07:57 Resp 16 01/29/19 07:57 BP 145/70 H 01/29/19 07:57 Pulse Ox 98 01/29/19 07:57 Weight - Most Recent: 253 lb 2.015 oz I&O - Last 24 Hours: Intake & Output 01/28/19 01/29/19 01/29/19 22:59 06:59 14:59 Intake Total 711 Output Total 850 Balance -139 Lab Results Last 24 Hours: Laboratory Results - last 24 hr 01/28/19 01/28/19 01/28/19 Range/Units 22:48 22:48 23:56 WBC 8.9 (4.5-11.0) K/uL RBC 4.34 (3.30-5.50) M/uL Hgb 12.7 (12.0-15.0) g/dL Hct 39.3 (36.0-48.0) % MCV 91 (80-98) fL MCH 29 (27-31) pg MCHC 32 (32-36) % Plt Count 264 (150-400) K/uL Neut % (Auto) 75 H (36-66) % Lymph % (Auto) 18 L (24-44) % [place] % (Auto) 6 (2-6) % Eos % (Auto) 1 L (2-4) % Baso % (Auto) 1 (0-1) % Sodium 139 L (140-148) mmol/L Potassium 3.9 (3.6-5.2) mmol/L Chloride 104 (100-108) mmol/L Carbon Dioxide 26 (21-32) mmol/L Anion Gap 12.9 (5.0-14.0) mmol/L BUN 13 (7-18) mg/dL Creatinine 0.8 (0.6-1.0) mg/dL Est Cr Clr Drug Dosing 55.02 mL/min Estimated GFR (MDRD) > 60 (>60) Glucose 157 H (74-106) mg/dL Calcium 8.7 (8.5-10.1) mg/dL Total Bilirubin 0.4 (0.2-1.0) mg/dL AST 23 (15-37) U/L ALT 30 (12-78) U/L Alkaline Phosphatase 112 (46-116) U/L Total Protein 7.4 (6.4-8.2) g/dL Albumin 3.6 (3.4-5.0) g/dL Globulin 3.8 H (2.3-3.5) g/dL Albumin/Globulin Ratio 1.0 L (1.2-2.2) Urine Color Yellow (YELLOW) Urine Appearance Clear (CLEAR) Urine pH 5.5 (5.0-8.0) Ur Specific [place] 1.030 (1.008-1.030) Urine Protein 30 H (NEGATIVE) mg/dL Urine Glucose (UA) Normal (NEGATIVE) mg/dL Urine Ketones 15 H (NEGATIVE) mg/dL Urine Occult Blood Negative (NEGATIVE) Urine Nitrite Negative (NEGATIVE) Urine Bilirubin Small (NEGATIVE) Urine Urobilinogen Normal (0.2-1.0) EU/dL Ur Leukocyte Esterase Negative (NEGATIVE) Urine RBC 0-5 (0-5) Urine WBC 0-5 (0-5) Ur Epithelial Cells Few Amorphous Sediment Not seen Urine Bacteria Few Urine Mucus Few Urine Other Blood Type Gel Antibody Screen 01/29/19 Range/Units 08:20 WBC (4.5-11.0) K/uL RBC (3.30-5.50) M/uL Hgb (12.0-15.0) g/dL Hct (36.0-48.0) % MCV (80-98) fL MCH (27-31) pg MCHC (32-36) % Plt Count (150-400) K/uL Neut % (Auto) (36-66) % Lymph % (Auto) (24-44) % [place] % (Auto) (2-6) % Eos % (Auto) (2-4) % Baso % (Auto) (0-1) % Sodium (140-148) mmol/L Potassium (3.6-5.2) mmol/L Chloride (100-108) mmol/L Carbon Dioxide (21-32) mmol/L Anion Gap (5.0-14.0) mmol/L BUN (7-18) mg/dL Creatinine (0.6-1.0) mg/dL Est Cr Clr Drug Dosing mL/min Estimated GFR (MDRD) (>60) Glucose (74-106) mg/dL Calcium (8.5-10.1) mg/dL Total Bilirubin (0.2-1.0) mg/dL AST (15-37) U/L ALT (12-78) U/L Alkaline Phosphatase (46-116) U/L Total Protein (6.4-8.2) g/dL Albumin (3.4-5.0) g/dL Globulin (2.3-3.5) g/dL Albumin/Globulin Ratio (1.2-2.2) Urine Color (YELLOW) Urine Appearance (CLEAR) Urine pH (5.0-8.0) Ur Specific [place] (1.008-1.030) Urine Protein (NEGATIVE) mg/dL Urine Glucose (UA) (NEGATIVE) mg/dL Urine Ketones (NEGATIVE) mg/dL Urine Occult Blood (NEGATIVE) Urine Nitrite (NEGATIVE) Urine Bilirubin (NEGATIVE) Urine Urobilinogen (0.2-1.0) EU/dL Ur Leukocyte Esterase (NEGATIVE) Urine RBC (0-5) Urine WBC (0-5) Ur Epithelial Cells Amorphous Sediment Urine Bacteria Urine Mucus Urine Other Blood Type O POSITIVE Gel Antibody Screen Negative Med Orders - Current: Current Medications Sodium Chloride (Normal Saline) 1,000 mls @ 150 mls/hr IV ASDIRECTED DOT Last Admin: 01/29/19 05:55 Dose: 150 mls/hr Promethazine HCl 6.25 mg/ (Sodium Chloride) 50.25 mls @ 200 mls/hr IV Q6H PRN PRN Reason: Nausea/Vomiting Clindamycin Phosphate 900 mg/ (Sodium Chloride) 106 mls @ 200 mls/hr IV ONETIME ONE Stop: 01/29/19 09:23 Metoprolol Succinate (Toprol Xl) 25 mg PO BEDTIME [facility] Morphine Sulfate (Morphine) 2 mg IVPUSH Q4H PRN PRN Reason: Pain (severe 7-10) Pantoprazole Sodium (Protonix Iv) 40 mg IV Q24H [facility] Last Admin: 01/28/19 23:33 Dose: 40 mg Senna/Docusate Sodium (Senna Plus) 1 tab PO BID PRN PRN Reason: Constipation Sertraline HCl (Zoloft) 12.5 mg PO DAILY [facility] Last Admin: 01/29/19 09:33 Dose: 12.5 mg Sertraline HCl (Zoloft) 25 mg PO BEDTIME [facility] Last Admin: 01/28/19 23:33 Dose: 25 mg Discontinued Medications Metoprolol Succinate (Toprol Xl) 25 mg PO DAILY [facility] Last Admin: 01/28/19 23:33 Dose: 25 mg Ondansetron HCl (Zofran) 4 mg IVPUSH ONETIME ONE Stop: 01/28/19 22:25 Last Admin: 01/28/19 22:27 Dose: 4 mg Ondansetron HCl (Zofran) Confirm Administered Dose 4 mg .ROUTE .[facility] ONE Stop: 01/28/19 22:26 Last Admin: 01/28/19 22:33 Dose: Not Given Sertraline HCl (Zoloft) 25 mg PO BEDTIME [facility] - Exam General: Alert, Oriented, Cooperative, Mild Distress Lungs: Clear to Auscultation, Normal Respiratory Effort Cardiovascular: Regular Rate, Regular Rhythm, No Murmurs GI/Abdominal Exam: Soft, Non-Tender, No Organomegaly, No Distention Extremities: No Pedal Edema, Leg Pain - Problem List Review Problem List Initiated/Reviewed/Updated: Yes - My Orders Last 24 Hours: My Active Orders 01/29/19 10:41 Ribs 2V w Chest Rt [CR] Routine Scapula Rt [CR] Routine - Plan Plan:: ASSESSMENT AND PLAN RIGHT FEMUR FRACTURE-status post total right knee arthroplasty 6 weeks ago -Nothing by mouth -IV fluids for hydration -Consult Dr. Valdovinos RIGHT POSTERIOR CHEST WALL PAIN-she notes significant pain in the right posterior chest wall since the fall -X-ray of right scapula and ribs posterior chest wall MAINTENANCE ISSUES -DVT prophylaxis; scuds, initiate anticoagulation tomorrow a.m. -GI prophylaxis; not indicated -Rashid catheter; placed in the emergency department -Nutrition; nothing by mouth until after surgery -Nicotine dependence; not required CODE STATUS-FULL CODE ADMISSION STATUS-patient will be admitted to inpatient status, expect at least a 2 night hospital stay for evaluation and management of problems as outlined above. At the time of this admission I do not reasonably expected evaluation and management of this problem will require more than a 96 hour hospital stay. DISPOSITION-anticipate discharge to home after the hospital stay. PRIMARY CARE PROVIDER-Tahira Amaro
[2019-01-29] MEDS ORDERED: Propofol 200 MG/20 ML SDV ONE ×3 (13:21→18:24)
[2019-01-29] MEDS ORDERED: fentaNYL 100 MCG/2 ML SDV ONE (13:21)
[2019-01-29] MEDS ORDERED: Midazolam 1 MG/ML 2 ML SDV ONE (13:22)
--- NOTE | 2019-01-29 13:24 | CRLCR ---
INDICATION: Trauma, fall COMPARISON: none TECHNIQUE: Frontal view of the chest and three views of the right ribs FINDINGS/IMPRESSION: No displaced rib fracture is demonstrated. The lungs are clear. There is no pleural effusion or pneumothorax. The cardiomediastinal silhouette is normal. Dictated by Vishnu Holcomb MD @ Jan 29 2019 1:23PM Signed by Dr. Vishnu Holcomb @ Jan 29 2019 1:23PM
--- NOTE | 2019-01-29 13:24 | CRLCR ---
Indication: Pain after fall Technique: Three views of the right scapula Comparison: None Findings/Impression: The examination is limited due to technique and patient body habitus. There is focal irregularity of the anterior inferior cortical margin of the scapula on scapular Y-view, which may relate to acute fracture. Further assessment with CT is suggested for confirmation. Dictated by Vishnu Holcomb MD @ Jan 29 2019 1:18PM Signed by Dr. Vishnu Holcomb @ Jan 29 2019 1:22PM
[2019-01-29] MEDS ORDERED: Sugammadex Sodium 200 MG/2 ML VIAL ONE (13:32)
[2019-01-29] MEDS ORDERED: Povidone-Iodine 10% Soln 118.25 ML Bottle ONE (14:15)
[2019-01-29] MEDS: Clindamycin Phosphate 900 MG in Sodium Chloride 0.9% 100 ML IV ONE ×2 (16:30→16:48)
[2019-01-29] MEDS ORDERED: Lactated Ringers 1,000 ML ONE (17:26)
[2019-01-29] MEDS ORDERED: traMADol 50 MG Tab PO PRN (19:04)
[2019-01-29] MEDS ORDERED: Morphine 2 MG/ML Syringe IVPUSH PRN (19:05)
[2019-01-29] MEDS: HYDROmorphone 2 MG Tab PO PRN (20:41)
[2019-01-29] MEDS ORDERED: Sertraline 25 MG Tab PO SCH (21:00)
[2019-01-29] MEDS: Metoprolol Succinate 25 MG Tab.ER PO SCH (21:18)
[2019-01-29] MEDS: Pantoprazole 40 MG Vial IV SCH (23:06)
[2019-01-29] MEDS: Clindamycin Phosphate 900 MG in Sodium Chloride 0.9% 100 ML IV SCH (23:38)
[2019-01-30] MEDS: Sodium Chloride 0.9% 1,000 ML IV SCH ×2 (00:56→18:10)
[2019-01-30] MEDS: HYDROmorphone 2 MG Tab PO PRN ×6 (01:02→23:14)
[2019-01-30] MEDS: Acetaminophen 325 MG Tab PO PRN ×4 (04:20→23:14)
[2019-01-30] MEDS: Sertraline 25 MG Tab PO SCH ×2 (08:34→20:13)
[2019-01-30] MEDS: Enoxaparin 40 MG/0.4 ML Syringe SUBCUT SCH (09:40)
[2019-01-30] MEDS: Clindamycin Phosphate 900 MG in Sodium Chloride 0.9% 100 ML IV SCH ×2 (09:40→16:46)
--- NOTE | 2019-01-30 12:23 | CRLCR ---
INDICATION: Portable fluoroscopy requested during orthopedic procedure TECHNIQUE: 0.5 minutes of fluoroscopic time was utilized. 3 digital images were acquired. FINDINGS: The digital images demonstrate plate and screw fixation and anatomic reduction of the distal femoral fracture. IMPRESSION: Portable fluoroscopy utilized during orthopedic procedure Dictated by Luke Mcleod MD @ 01/30/2019 12:21:19 PM Dictated by: Luke Mcleod MD @ 01/30/2019 12:21:30 (Electronically Signed)
--- NOTE | 2019-01-30 13:59 | PCM.PN ---
- General Info Date of Service: 01/30/19 Subjective Update: Ms. Sharif has been stable since surgery yesterday. She has been trying to work with physical therapy, currently no weightbearing right leg. Continues to experience pain in the right scapula, x-ray suggests possible fracture. Functional Status: Reports: Tolerating Diet, Urinating - Review of Systems General: Reports: Fever, Weakness, Fatigue Pulmonary: Reports: No Symptoms Cardiovascular: Reports: No Symptoms Gastrointestinal: Reports: No Symptoms Musculoskeletal: Reports: Leg Pain - Patient Data Vitals - Most Recent: Last Vital Signs Temp 100.6 F 01/30/19 11:00 Pulse 80 01/30/19 11:00 Resp 18 01/30/19 11:00 BP 144/67 H 01/30/19 11:00 Pulse Ox 94 L 01/30/19 11:00 Weight - Most Recent: 250 lb I&O - Last 24 Hours: Intake & Output 01/29/19 01/30/19 01/30/19 22:59 06:59 14:59 Intake Total 1779 2668 100 Output Total 350 850 Balance 1429 1818 100 Lab Results Last 24 Hours: Laboratory Results - last 24 hr 01/30/19 01/30/19 Range/Units 08:27 08:27 WBC 7.9 (4.5-11.0) K/uL RBC 3.24 L (3.30-5.50) M/uL Hgb 9.2 L D (12.0-15.0) g/dL Hct 30.1 L (36.0-48.0) % MCV 93 (80-98) fL MCH 28 (27-31) pg MCHC 31 L (32-36) % Plt Count 205 (150-400) K/uL Neut % (Auto) 63 (36-66) % Lymph % (Auto) 24 (24-44) % [place] % (Auto) 13 H (2-6) % Eos % (Auto) 0 L (2-4) % Baso % (Auto) 0 (0-1) % Sodium 139 L (140-148) mmol/L Potassium 4.0 (3.6-5.2) mmol/L Chloride 108 (100-108) mmol/L Carbon Dioxide 25 (21-32) mmol/L Anion Gap 10.0 (5.0-14.0) mmol/L BUN 8 (7-18) mg/dL Creatinine 0.8 (0.6-1.0) mg/dL Est Cr Clr Drug Dosing 55.08 mL/min Estimated GFR (MDRD) > 60 (>60) Glucose 117 H (74-106) mg/dL Calcium 7.6 L (8.5-10.1) mg/dL Phil Results Last 24 Hours: Microbiology 01/28/19 23:57 Urine Culture - Preliminary Urine, Clean Catch NO GROWTH AFTER 1 DAY Med Orders - Current: Current Medications Acetaminophen (Tylenol) 650 mg PO Q4H PRN PRN Reason: Fever Last Admin: 01/30/19 10:40 Dose: 650 mg Enoxaparin Sodium (Lovenox) 40 mg SUBCUT DAILY [facility] Last Admin: 01/30/19 09:40 Dose: 40 mg Hydromorphone HCl (Dilaudid) 2 mg PO Q3H PRN PRN Reason: Pain (moderate 4-6) Last Admin: 01/30/19 10:40 Dose: 2 mg Promethazine HCl 6.25 mg/ (Sodium Chloride) 50.25 mls @ 200 mls/hr IV Q6H PRN PRN Reason: Nausea/Vomiting Clindamycin Phosphate 900 mg/ (Sodium Chloride) 106 mls @ 200 mls/hr IV Q8H [facility] Stop: 01/30/19 16:32 Last Admin: 01/30/19 09:40 Dose: 200 mls/hr Sodium Chloride (Normal Saline) 1,000 mls @ 75 mls/hr IV ASDIRECTED [facility] Metoprolol Succinate (Toprol Xl) 25 mg PO BEDTIME [facility] Last Admin: 01/29/19 21:18 Dose: 25 mg Morphine Sulfate (Morphine) 2 mg IVPUSH Q1H PRN PRN Reason: Pain (severe 7-10) Last Admin: 01/29/19 23:25 Dose: 2 mg Pantoprazole Sodium (Protonix Iv) 40 mg IV Q24H [facility] Last Admin: 01/29/19 23:06 Dose: 40 mg Senna/Docusate Sodium (Senna Plus) 1 tab PO BID PRN PRN Reason: Constipation Last Admin: 01/30/19 10:41 Dose: 1 tab Sertraline HCl (Zoloft) 12.5 mg PO DAILY [facility] Last Admin: 01/30/19 08:34 Dose: 12.5 mg Sertraline HCl (Zoloft) 25 mg PO BEDTIME [facility] Last Admin: 01/29/19 21:17 Dose: 25 mg Tramadol HCl (Ultram) 50 mg PO Q4H PRN PRN Reason: Pain (mild 1-3) Last Admin: 01/30/19 08:33 Dose: 50 mg Discontinued Medications Fentanyl (Sublimaze) Confirm Administered Dose 100 mcg .ROUTE .STK-MED ONE Stop: 01/29/19 13:22 Sodium Chloride (Normal Saline) 1,000 mls @ 150 mls/hr IV ASDIRECTED [facility] Last Admin: 01/30/19 00:56 Dose: 150 mls/hr Clindamycin Phosphate 900 mg/ (Sodium Chloride) 106 mls @ 200 mls/hr IV ONETIME ONE Stop: 01/29/19 16:01 Last Admin: 01/29/19 16:48 Dose: Not Given Lactated Ringer's (Ringers, Lactated) Confirm Administered Dose 1,000 mls @ as directed .ROUTE .STK-MED ONE Stop: 01/29/19 17:27 Metoprolol Succinate (Toprol Xl) 25 mg PO DAILY [facility] Last Admin: 01/28/19 23:33 Dose: 25 mg Midazolam HCl (Versed 1 Mg/Ml) Confirm Administered Dose 2 mg .ROUTE .STK-MED ONE Stop: 01/29/19 13:23 Morphine Sulfate (Morphine) 2 mg IVPUSH Q4H PRN PRN Reason: Pain (severe 7-10) Last Admin: 01/29/19 22:15 Dose: 2 mg Ondansetron HCl (Zofran) 4 mg IVPUSH ONETIME ONE Stop: 01/28/19 22:25 Last Admin: 01/28/19 22:27 Dose: 4 mg Ondansetron HCl (Zofran) Confirm Administered Dose 4 mg .ROUTE .STK-MED ONE Stop: 01/28/19 22:26 Last Admin: 01/28/19 22:33 Dose: Not Given Povidone Iodine (Betadine 10% Soln) Confirm Administered Dose 1 ml .ROUTE .STK- MED ONE Stop: 01/29/19 14:16 Propofol (Diprivan 20 Ml) Confirm Administered Dose 200 mg .ROUTE .STK-MED ONE Stop: 01/29/19 13:22 Propofol (Diprivan 20 Ml) Confirm Administered Dose 200 mg .ROUTE .STK-MED ONE Stop: 01/29/19 17:15 Propofol (Diprivan 20 Ml) Confirm Administered Dose 200 mg .ROUTE .STK-MED ONE Stop: 01/29/19 18:25 Sertraline HCl (Zoloft) 25 mg PO BEDTIME DOT Sugammadex Sodium (Bridion) Confirm Administered Dose 200 mg .ROUTE .STK-MED ONE Stop: 01/29/19 13:33 - Exam Quality Assessment: DVT Prophylaxis General: Alert, Oriented, Cooperative, Moderate Distress Lungs: Clear to Auscultation, Normal Respiratory Effort Cardiovascular: Regular Rate, Regular Rhythm, No Murmurs GI/Abdominal Exam: Soft, Non-Tender, No Organomegaly Extremities: Leg Pain, Other (Right scapular pain) - Problem List Review Problem List Initiated/Reviewed/Updated: Yes - My Orders Last 24 Hours: My Active Orders 01/30/19 09:00 Enoxaparin [Lovenox] 40 mg SUBCUT DAILY 01/30/19 13:10 Shoulder wo Cont Rt [CT] Urgent 01/30/19 14:00 Sodium Chloride 0.9% @ 75 MLS/HR(1000ml) Sodium Chloride 0.9% [Normal Saline] 1 ,000 ml IV ASDIRECTED - Plan Plan:: RIGHT FEMUR FRACTURE-status post total right knee arthroplasty 6 weeks ago -Postoperative care per Dr. Valdovinos RIGHT POSTERIOR CHEST WALL PAIN-she notes significant pain in the right posterior chest wall since the fall. X-ray suggests possible scapular fracture. -CT scan right shoulder MAINTENANCE ISSUES -DVT prophylaxis; Lovenox 40 mg subcutaneous daily -GI prophylaxis; not indicated -Rashid catheter; placed in the emergency department -Nutrition; regular diet -Nicotine dependence; not required CODE STATUS-FULL CODE ADMISSION STATUS-patient will be admitted to inpatient status, expect at least a 2 night hospital stay for evaluation and management of problems as outlined above. At the time of this admission I do not reasonably expected evaluation and management of this problem will require more than a 96 hour hospital stay. DISPOSITION-anticipate discharge to home after the hospital stay. PRIMARY CARE PROVIDER-Tahira Amaro
--- NOTE | 2019-01-30 14:22 | CRLCT ---
HISTORY: Right scapular pain after a fall. Concern for possible fracture on radiographs. TECHNIQUE: Noncontrast CT of the right shoulder. COMPARISON: Radiographs 01/29/2019. FINDINGS: There is no acute scapular fracture. No acute proximal humeral fracture. Glenohumeral joint is maintained. AC joint degenerative arthrosis. No atrophy of the rotator cuff musculature. No fluid collection or space-occupying hematoma. IMPRESSION: 1. No acute scapular fracture. 2. No proximal humeral fracture. 3. No glenohumeral joint dislocation. 4. AC joint degenerative changes. Dictated by Richard Cheatham MD @ 01/30/2019 2:19:58 PM Please note that all CT scans at this facility use dose modulation, iterative reconstruction, and/or weight-based dosing when appropriate to reduce radiation dose to as low as reasonably achievable. Dictated by: Richard Cheatham MD @ 01/30/2019 14:20:04 (Electronically Signed)
[2019-01-30] MEDS: Metoprolol Succinate 25 MG Tab.ER PO SCH (20:13)
[2019-01-30] MEDS: Pantoprazole 40 MG Vial IV SCH (21:35)
--- NOTE | 2019-01-30 22:30 | OR ---
DATE OF PROCEDURE: 01/29/2019 PREOPERATIVE DIAGNOSIS: Displaced right distal periprosthetic femur fracture, supracondylar. POSTOPERATIVE DIAGNOSIS: Displaced right distal periprosthetic femur fracture, supracondylar. PROCEDURE: Open reduction and internal fixation, right distal femur using Synthes lateral femoral large frag plate. ANESTHESIA: Spinal with sedation. INDICATIONS: Sena is a 63-year-old female, who had undergone a right total knee arthroplasty just approximately a month ago. She had been doing well and was out in the community. She apparently stumbled while leaving a restaurant catching her foot landing directly onto the front of her patellar aspect of her right knee. She presented to the emergency room with a displaced fracture, supracondylar region, just above the prosthesis. She was admitted and taken to the operating room the following day for fixation. Risks, benefits, and potential complications of the procedure were discussed. DESCRIPTION OF PROCEDURE: After adequate anesthesia was obtained, the patient was placed supine. Right leg was prepped and draped in a sterile fashion. A longitudinal incision was made over the lateral aspect of the leg distally. Incision was curved slightly anterior aiming towards the tibial tubercle. This was carried down through the subcutaneous tissues and hemostasis was obtained with electrocautery. The IT band was then split in line with its fibers. The vastus lateralis was elevated anteriorly. Penetrating vessels were coagulated. A Townsend retractor was placed anterior to the distal femoral shaft. The fracture was exposed. A small bolster was placed at the knee flexing it slightly taking tension off the hamstrings and gastrocs soleus complex. The fracture was then reduced. No significant comminution was noted. The plate was selected. Prior to application of the plate, approximately 30 mL of crushed cancellous bone graft was packed into the distal femur both in the distal shaft and the metaphyseal region. With the fracture reduced , the plate was secured over the lateral femur and initially secured to the distal fragment with locking screw. The most distal anterior screw was able to be placed to just avoid the intercondylar notch portion of the prosthesis. The distal posterior screw abutted against the intercondylar box and this was therefore shorter. Third locking screw was placed more anterior. Plate was secured proximally with 4.5 mm cortical screws in compression mode. Excellent purchase was obtained on all cortical screws. Final position was confirmed using fluoroscopy. The wound was irrigated. IT band was closed using a running locking #1 Vicryl. Skin was closed with #1 Vicryl in the deeper layer, 2-0 Vicryl in the skin, and a running 3-0 Monocryl. Steri-Strips were applied. Sterile dressing was then placed with a light compressive dressing. The patient tolerated the procedure well. There were no complications. Taken from the operating room in stable condition. Jose Valdovinos MD /[id number] [email or web address]
[2019-01-31] MEDS: Acetaminophen 325 MG Tab PO PRN ×4 (05:45→21:30)
[2019-01-31] MEDS: HYDROmorphone 2 MG Tab PO PRN ×4 (05:45→21:30)
[2019-01-31] MEDS: Sertraline 25 MG Tab PO SCH ×2 (08:11→21:28)
[2019-01-31] MEDS: Enoxaparin 40 MG/0.4 ML Syringe SUBCUT SCH (08:11)
[2019-01-31] MEDS: Sodium Chloride 0.9% 1,000 ML IV SCH (08:14)
--- NOTE | 2019-01-31 10:56 | PCM.PN ---
- General Info Date of Service: 01/31/19 Subjective Update: Ms. Sharif is been stable since yesterday, she is not had had a bowel movement but has received bowel stimulation. Vital signs have remained stable and she has been afebrile. Working with physical therapy and able to ambulate short distances with use of a walker. Functional Status: Reports: Pain Controlled, Tolerating Diet, Ambulating - Review of Systems General: Reports: No Symptoms Pulmonary: Reports: No Symptoms Cardiovascular: Reports: No Symptoms Gastrointestinal: Reports: No Symptoms Musculoskeletal: Reports: Leg Pain - Patient Data Vitals - Most Recent: Last Vital Signs Temp 98.1 F 01/31/19 10:41 Pulse 81 01/31/19 10:41 Resp 16 01/31/19 10:41 BP 155/70 H 01/31/19 10:41 Pulse Ox 97 01/31/19 10:41 Weight - Most Recent: 250 lb I&O - Last 24 Hours: Intake & Output 01/30/19 01/31/19 01/31/19 22:59 06:59 14:59 Intake Total 1883 1505 Output Total 375 300 Balance 1508 1205 Phil Results Last 24 Hours: Microbiology 01/28/19 23:57 Urine Culture - Final Urine, Clean Catch NO GROWTH AFTER 2 DAYS Med Orders - Current: Current Medications Acetaminophen (Tylenol) 650 mg PO Q4H PRN PRN Reason: Fever Last Admin: 01/31/19 05:45 Dose: 650 mg Enoxaparin Sodium (Lovenox) 40 mg SUBCUT DAILY [facility] Last Admin: 01/31/19 08:11 Dose: 40 mg Hydromorphone HCl (Dilaudid) 2 mg PO Q3H PRN PRN Reason: Pain (moderate 4-6) Last Admin: 01/31/19 05:45 Dose: 2 mg Promethazine HCl 6.25 mg/ (Sodium Chloride) 50.25 mls @ 200 mls/hr IV Q6H PRN PRN Reason: Nausea/Vomiting Metoprolol Succinate (Toprol Xl) 25 mg PO BEDTIME [facility] Last Admin: 01/30/19 20:13 Dose: 25 mg Morphine Sulfate (Morphine) 2 mg IVPUSH Q1H PRN PRN Reason: Pain (severe 7-10) Last Admin: 01/29/19 23:25 Dose: 2 mg Pantoprazole Sodium (Protonix) 40 mg PO BEDTIME [facility] Senna/Docusate Sodium (Senna Plus) 1 tab PO BID PRN PRN Reason: Constipation Last Admin: 01/31/19 08:11 Dose: 1 tab Sertraline HCl (Zoloft) 12.5 mg PO DAILY [facility] Last Admin: 01/31/19 08:11 Dose: 12.5 mg Sertraline HCl (Zoloft) 25 mg PO BEDTIME [facility] Last Admin: 01/30/19 20:13 Dose: 25 mg Tramadol HCl (Ultram) 50 mg PO Q4H PRN PRN Reason: Pain (mild 1-3) Last Admin: 01/30/19 08:33 Dose: 50 mg Discontinued Medications Fentanyl (Sublimaze) Confirm Administered Dose 100 mcg .ROUTE .STK-MED ONE Stop: 01/29/19 13:22 Sodium Chloride (Normal Saline) 1,000 mls @ 150 mls/hr IV ASDIRECTED [facility] Last Admin: 01/30/19 00:56 Dose: 150 mls/hr Clindamycin Phosphate 900 mg/ (Sodium Chloride) 106 mls @ 200 mls/hr IV ONETIME ONE Stop: 01/29/19 16:01 Last Admin: 01/29/19 16:48 Dose: Not Given Lactated Ringer's (Ringers, Lactated) Confirm Administered Dose 1,000 mls @ as directed .ROUTE .STK-MED ONE Stop: 01/29/19 17:27 Clindamycin Phosphate 900 mg/ (Sodium Chloride) 106 mls @ 200 mls/hr IV Q8H [facility] Stop: 01/30/19 16:32 Last Admin: 01/30/19 16:46 Dose: 200 mls/hr Sodium Chloride (Normal Saline) 1,000 mls @ 75 mls/hr IV ASDIRECTED [facility] Last Admin: 01/31/19 08:14 Dose: 75 mls/hr Metoprolol Succinate (Toprol Xl) 25 mg PO DAILY [facility] Last Admin: 01/28/19 23:33 Dose: 25 mg Midazolam HCl (Versed 1 Mg/Ml) Confirm Administered Dose 2 mg .ROUTE .STK-MED ONE Stop: 01/29/19 13:23 Morphine Sulfate (Morphine) 2 mg IVPUSH Q4H PRN PRN Reason: Pain (severe 7-10) Last Admin: 01/29/19 22:15 Dose: 2 mg Ondansetron HCl (Zofran) 4 mg IVPUSH ONETIME ONE Stop: 01/28/19 22:25 Last Admin: 01/28/19 22:27 Dose: 4 mg Ondansetron HCl (Zofran) Confirm Administered Dose 4 mg .ROUTE .STK-MED ONE Stop: 01/28/19 22:26 Last Admin: 01/28/19 22:33 Dose: Not Given Pantoprazole Sodium (Protonix Iv) 40 mg IV Q24H [facility] Last Admin: 01/30/19 21:35 Dose: 40 mg Povidone Iodine (Betadine 10% Soln) Confirm Administered Dose 1 ml .ROUTE .STK- MED ONE Stop: 01/29/19 14:16 Propofol (Diprivan 20 Ml) Confirm Administered Dose 200 mg .ROUTE .STK-MED ONE Stop: 01/29/19 13:22 Propofol (Diprivan 20 Ml) Confirm Administered Dose 200 mg .ROUTE .STK-MED ONE Stop: 01/29/19 17:15 Propofol (Diprivan 20 Ml) Confirm Administered Dose 200 mg .ROUTE .STK-MED ONE Stop: 01/29/19 18:25 Sertraline HCl (Zoloft) 25 mg PO BEDTIME [facility] Sugammadex Sodium (Bridion) Confirm Administered Dose 200 mg .ROUTE .STK-MED ONE Stop: 01/29/19 13:33 - Exam Quality Assessment: Urine Catheter, DVT Prophylaxis General: Alert, Oriented, Cooperative, Mild Distress Lungs: Clear to Auscultation, Normal Respiratory Effort Cardiovascular: Regular Rate, Regular Rhythm, No Murmurs GI/Abdominal Exam: Soft, Non-Tender, No Organomegaly, No Distention Extremities: Leg Pain - Problem List Review Problem List Initiated/Reviewed/Updated: Yes - My Orders Last 24 Hours: My Active Orders 01/31/19 09:32 Convert IV to Saline Lock [OM.PC] Routine 01/31/19 10:52 Remove Rashid Catheter [Urinary Catheter Removal] [RC] Per Unit Routine - Plan Plan:: RIGHT FEMUR FRACTURE-status post total right knee arthroplasty 6 weeks ago -Postoperative care per Dr. Valdovinos RIGHT POSTERIOR CHEST WALL PAIN-pain has improved, CT scan of the shoulder showed no evidence of fracture MAINTENANCE ISSUES -DVT prophylaxis; Lovenox 40 mg subcutaneous daily, SCUDs -GI prophylaxis; not indicated -Rashid catheter; placed in the emergency department -Nutrition; regular diet -Nicotine dependence; not required CODE STATUS-FULL CODE ADMISSION STATUS-patient will be admitted to inpatient status, expect at least a 2 night hospital stay for evaluation and management of problems as outlined above. At the time of this admission I do not reasonably expected evaluation and management of this problem will require more than a 96 hour hospital stay. DISPOSITION-anticipate discharge to home after the hospital stay. PRIMARY CARE PROVIDER-Tahira Amaro
[2019-01-31] MEDS: Pantoprazole 40 MG Tab.CR PO SCH (21:29)
[2019-01-31] MEDS: Metoprolol Succinate 25 MG Tab.ER PO SCH (21:31)
[2019-02-01] MEDS: HYDROmorphone 2 MG Tab PO PRN ×3 (04:43→20:47)
[2019-02-01] MEDS: Acetaminophen 325 MG Tab PO PRN ×3 (04:44→20:46)
[2019-02-01] MEDS: Enoxaparin 40 MG/0.4 ML Syringe SUBCUT SCH (08:50)
[2019-02-01] MEDS: Sertraline 25 MG Tab PO SCH ×2 (08:53→20:47)
--- NOTE | 2019-02-01 10:49 | PCM.PN ---
- General Info Date of Service: 02/01/19 Subjective Update: Ms. Sharif has been stable since yesterday, able to ambulate with no weightbearing and use of walker short distances. Pain control has been adequate , appetite slowly improving. Functional Status: Reports: Pain Controlled, Tolerating Diet, Ambulating, Urinating - Review of Systems General: Reports: Weakness. Denies: Fever, Chills Pulmonary: Reports: No Symptoms Cardiovascular: Reports: No Symptoms Gastrointestinal: Reports: No Symptoms Musculoskeletal: Reports: Leg Pain - Patient Data Vitals - Most Recent: Last Vital Signs Temp 98.7 F 02/01/19 08:00 Pulse 86 02/01/19 08:00 Resp 18 02/01/19 08:00 BP 143/55 H 02/01/19 08:00 Pulse Ox 95 02/01/19 08:00 Weight - Most Recent: 250 lb I&O - Last 24 Hours: Intake & Output 01/31/19 02/01/19 02/01/19 22:59 06:59 14:59 Intake Total 500 Output Total 550 600 300 Balance -550 -100 -300 Phil Results Last 24 Hours: Microbiology 01/28/19 23:57 Urine Culture - Final Urine, Clean Catch NO GROWTH AFTER 2 DAYS Med Orders - Current: Current Medications Acetaminophen (Tylenol) 650 mg PO Q4H PRN PRN Reason: Fever Last Admin: 02/01/19 04:44 Dose: 650 mg Enoxaparin Sodium (Lovenox) 40 mg SUBCUT DAILY [facility] Last Admin: 02/01/19 08:50 Dose: 40 mg Hydromorphone HCl (Dilaudid) 2 mg PO Q3H PRN PRN Reason: Pain (moderate 4-6) Last Admin: 02/01/19 04:43 Dose: 2 mg Promethazine HCl 6.25 mg/ (Sodium Chloride) 50.25 mls @ 200 mls/hr IV Q6H PRN PRN Reason: Nausea/Vomiting Metoprolol Succinate (Toprol Xl) 25 mg PO BEDTIME [facility] Last Admin: 01/31/19 21:31 Dose: 25 mg Morphine Sulfate (Morphine) 2 mg IVPUSH Q1H PRN PRN Reason: Pain (severe 7-10) Last Admin: 01/29/19 23:25 Dose: 2 mg Pantoprazole Sodium (Protonix) 40 mg PO BEDTIME [facility] Last Admin: 01/31/19 21:29 Dose: 40 mg Senna/Docusate Sodium (Senna Plus) 1 tab PO BID PRN PRN Reason: Constipation Last Admin: 01/31/19 08:11 Dose: 1 tab Sertraline HCl (Zoloft) 12.5 mg PO DAILY [facility] Last Admin: 02/01/19 08:53 Dose: 12.5 mg Sertraline HCl (Zoloft) 25 mg PO BEDTIME [facility] Last Admin: 01/31/19 21:28 Dose: 25 mg Tramadol HCl (Ultram) 50 mg PO Q4H PRN PRN Reason: Pain (mild 1-3) Last Admin: 01/30/19 08:33 Dose: 50 mg Discontinued Medications Fentanyl (Sublimaze) Confirm Administered Dose 100 mcg .ROUTE .STK-MED ONE Stop: 01/29/19 13:22 Sodium Chloride (Normal Saline) 1,000 mls @ 150 mls/hr IV ASDIRECTED [facility] Last Admin: 01/30/19 00:56 Dose: 150 mls/hr Clindamycin Phosphate 900 mg/ (Sodium Chloride) 106 mls @ 200 mls/hr IV ONETIME ONE Stop: 01/29/19 16:01 Last Admin: 01/29/19 16:48 Dose: Not Given Lactated Ringer's (Ringers, Lactated) Confirm Administered Dose 1,000 mls @ as directed .ROUTE .STK-MED ONE Stop: 01/29/19 17:27 Clindamycin Phosphate 900 mg/ (Sodium Chloride) 106 mls @ 200 mls/hr IV Q8H [facility] Stop: 01/30/19 16:32 Last Admin: 01/30/19 16:46 Dose: 200 mls/hr Sodium Chloride (Normal Saline) 1,000 mls @ 75 mls/hr IV ASDIRECTED [facility] Last Admin: 01/31/19 08:14 Dose: 75 mls/hr Metoprolol Succinate (Toprol Xl) 25 mg PO DAILY [facility] Last Admin: 01/28/19 23:33 Dose: 25 mg Midazolam HCl (Versed 1 Mg/Ml) Confirm Administered Dose 2 mg .ROUTE .STK-MED ONE Stop: 01/29/19 13:23 Morphine Sulfate (Morphine) 2 mg IVPUSH Q4H PRN PRN Reason: Pain (severe 7-10) Last Admin: 01/29/19 22:15 Dose: 2 mg Ondansetron HCl (Zofran) 4 mg IVPUSH ONETIME ONE Stop: 01/28/19 22:25 Last Admin: 01/28/19 22:27 Dose: 4 mg Ondansetron HCl (Zofran) Confirm Administered Dose 4 mg .ROUTE .STK-MED ONE Stop: 01/28/19 22:26 Last Admin: 01/28/19 22:33 Dose: Not Given Pantoprazole Sodium (Protonix Iv) 40 mg IV Q24H [facility] Last Admin: 01/30/19 21:35 Dose: 40 mg Povidone Iodine (Betadine 10% Soln) Confirm Administered Dose 1 ml .ROUTE .STK- MED ONE Stop: 01/29/19 14:16 Propofol (Diprivan 20 Ml) Confirm Administered Dose 200 mg .ROUTE .STK-MED ONE Stop: 01/29/19 13:22 Propofol (Diprivan 20 Ml) Confirm Administered Dose 200 mg .ROUTE .STK-MED ONE Stop: 01/29/19 17:15 Propofol (Diprivan 20 Ml) Confirm Administered Dose 200 mg .ROUTE .STK-MED ONE Stop: 01/29/19 18:25 Sertraline HCl (Zoloft) 25 mg PO BEDTIME [facility] Sugammadex Sodium (Bridion) Confirm Administered Dose 200 mg .ROUTE .STK-MED ONE Stop: 01/29/19 13:33 - Exam Quality Assessment: DVT Prophylaxis General: Alert, Oriented, Cooperative, Mild Distress Lungs: Clear to Auscultation, Normal Respiratory Effort Cardiovascular: Regular Rate, Regular Rhythm, No Murmurs GI/Abdominal Exam: Soft, Non-Tender, No Organomegaly, No Distention Extremities: No Pedal Edema, Leg Pain - Problem List Review Problem List Initiated/Reviewed/Updated: Yes - Plan Plan:: RIGHT FEMUR FRACTURE-status post total right knee arthroplasty 6 weeks ago -Postoperative care per Dr. Valdovinos RIGHT POSTERIOR CHEST WALL PAIN-pain has improved, CT scan of the shoulder showed no evidence of fracture MAINTENANCE ISSUES -DVT prophylaxis; Lovenox 40 mg subcutaneous daily, SCUDs -GI prophylaxis; not indicated -Rashid catheter; placed in the emergency department -Nutrition; regular diet -Nicotine dependence; not required CODE STATUS-FULL CODE ADMISSION STATUS-patient will be admitted to inpatient status, expect at least a 2 night hospital stay for evaluation and management of problems as outlined above. At the time of this admission I do not reasonably expected evaluation and management of this problem will require more than a 96 hour hospital stay. DISPOSITION-anticipate discharge to inpatient rehabilitation, 1-2 days PRIMARY CARE PROVIDER-Tahira Amaro
[2019-02-01] MEDS: Metoprolol Succinate 25 MG Tab.ER PO SCH (20:47)
[2019-02-01] MEDS: Pantoprazole 40 MG Tab.CR PO SCH (20:47)
[2019-02-02] MEDS: Acetaminophen 325 MG Tab PO PRN ×3 (08:41→21:54)
[2019-02-02] MEDS: HYDROmorphone 2 MG Tab PO PRN ×3 (08:41→21:54)
[2019-02-02] MEDS: Sertraline 25 MG Tab PO SCH ×2 (08:43→22:00)
[2019-02-02] MEDS: Enoxaparin 40 MG/0.4 ML Syringe SUBCUT SCH (08:43)
--- NOTE | 2019-02-02 13:17 | PCM.PN ---
- General Info Date of Service: 02/02/19 Subjective Update: No acute events overnight. Pain is adequately controlled. She is able to maneuver short distances with her walker. No fevers. No complaints of shortness of breath. Appetite is not great. - Patient Data Vitals - Most Recent: Last Vital Signs Temp 36.9 C 02/02/19 11:45 Pulse 83 02/02/19 11:45 Resp 18 02/02/19 11:45 BP 148/71 H 02/02/19 11:45 Pulse Ox 95 02/02/19 11:45 Weight - Most Recent: 113.398 kg I&O - Last 24 Hours: Intake & Output 02/01/19 02/02/19 02/02/19 22:59 06:59 14:59 Output Total 325 300 600 Balance -325 -300 -600 Med Orders - Current: Current Medications Acetaminophen (Tylenol) 650 mg PO Q4H PRN PRN Reason: Fever Last Admin: 02/02/19 08:41 Dose: 650 mg Enoxaparin Sodium (Lovenox) 40 mg SUBCUT DAILY [facility] Last Admin: 02/02/19 08:43 Dose: 40 mg Hydromorphone HCl (Dilaudid) 2 mg PO Q3H PRN PRN Reason: Pain (moderate 4-6) Last Admin: 02/02/19 08:41 Dose: 2 mg Promethazine HCl 6.25 mg/ (Sodium Chloride) 50.25 mls @ 200 mls/hr IV Q6H PRN PRN Reason: Nausea/Vomiting Metoprolol Succinate (Toprol Xl) 25 mg PO BEDTIME [facility] Last Admin: 02/01/19 20:47 Dose: 25 mg Morphine Sulfate (Morphine) 2 mg IVPUSH Q1H PRN PRN Reason: Pain (severe 7-10) Last Admin: 01/29/19 23:25 Dose: 2 mg Pantoprazole Sodium (Protonix) 40 mg PO BEDTIME [facility] Last Admin: 02/01/19 20:47 Dose: 40 mg Senna/Docusate Sodium (Senna Plus) 1 tab PO BID PRN PRN Reason: Constipation Last Admin: 01/31/19 08:11 Dose: 1 tab Sertraline HCl (Zoloft) 12.5 mg PO DAILY [facility] Last Admin: 02/02/19 08:43 Dose: 12.5 mg Sertraline HCl (Zoloft) 25 mg PO BEDTIME [facility] Last Admin: 02/01/19 20:47 Dose: 25 mg Tramadol HCl (Ultram) 50 mg PO Q4H PRN PRN Reason: Pain (mild 1-3) Last Admin: 01/30/19 08:33 Dose: 50 mg Discontinued Medications Fentanyl (Sublimaze) Confirm Administered Dose 100 mcg .ROUTE .STK-MED ONE Stop: 01/29/19 13:22 Sodium Chloride (Normal Saline) 1,000 mls @ 150 mls/hr IV ASDIRECTED [facility] Last Admin: 01/30/19 00:56 Dose: 150 mls/hr Clindamycin Phosphate 900 mg/ (Sodium Chloride) 106 mls @ 200 mls/hr IV ONETIME ONE Stop: 01/29/19 16:01 Last Admin: 01/29/19 16:48 Dose: Not Given Lactated Ringer's (Ringers, Lactated) Confirm Administered Dose 1,000 mls @ as directed .ROUTE .STK-MED ONE Stop: 01/29/19 17:27 Clindamycin Phosphate 900 mg/ (Sodium Chloride) 106 mls @ 200 mls/hr IV Q8H DOT Stop: 01/30/19 16:32 Last Admin: 01/30/19 16:46 Dose: 200 mls/hr Sodium Chloride (Normal Saline) 1,000 mls @ 75 mls/hr IV ASDIRECTED [facility] Last Admin: 01/31/19 08:14 Dose: 75 mls/hr Metoprolol Succinate (Toprol Xl) 25 mg PO DAILY [facility] Last Admin: 01/28/19 23:33 Dose: 25 mg Midazolam HCl (Versed 1 Mg/Ml) Confirm Administered Dose 2 mg .ROUTE .STK-MED ONE Stop: 01/29/19 13:23 Morphine Sulfate (Morphine) 2 mg IVPUSH Q4H PRN PRN Reason: Pain (severe 7-10) Last Admin: 01/29/19 22:15 Dose: 2 mg Ondansetron HCl (Zofran) 4 mg IVPUSH ONETIME ONE Stop: 01/28/19 22:25 Last Admin: 01/28/19 22:27 Dose: 4 mg Ondansetron HCl (Zofran) Confirm Administered Dose 4 mg .ROUTE .STK-MED ONE Stop: 01/28/19 22:26 Last Admin: 01/28/19 22:33 Dose: Not Given Pantoprazole Sodium (Protonix Iv) 40 mg IV Q24H DOT Last Admin: 01/30/19 21:35 Dose: 40 mg Povidone Iodine (Betadine 10% Soln) Confirm Administered Dose 1 ml .ROUTE .STK- MED ONE Stop: 01/29/19 14:16 Propofol (Diprivan 20 Ml) Confirm Administered Dose 200 mg .ROUTE .STK-MED ONE Stop: 01/29/19 13:22 Propofol (Diprivan 20 Ml) Confirm Administered Dose 200 mg .ROUTE .STK-MED ONE Stop: 01/29/19 17:15 Propofol (Diprivan 20 Ml) Confirm Administered Dose 200 mg .ROUTE .STK-MED ONE Stop: 01/29/19 18:25 Sertraline HCl (Zoloft) 25 mg PO BEDTIME DOT Sugammadex Sodium (Bridion) Confirm Administered Dose 200 mg .ROUTE .STK-MED ONE Stop: 01/29/19 13:33 - Exam Quality Assessment: No: Supplemental Oxygen General: Alert, Oriented, Cooperative, No Acute Distress Lungs: Normal Respiratory Effort GI/Abdominal Exam: Soft, No Distention Skin: Warm, Dry Psy/Mental Status: Alert, Normal Affect - Problem List Review Problem List Initiated/Reviewed/Updated: Yes - Plan Plan:: RIGHT FEMUR FRACTURE - status post total surgical repair on 01/30 (ORIF with lateral frag plate). She is only allowed toe-touch weightbearing at this time but is in general doing well postoperatively. -Postoperative care per Dr. Valdovinos -Physical therapy and occupational therapy consultation RIGHT POSTERIOR CHEST WALL PAIN - pain has resolved, CT scan of the shoulder showed no evidence of fracture MAINTENANCE ISSUES -DVT prophylaxis; Lovenox 40 mg subcutaneous daily, SCUDs -GI prophylaxis; not indicated -Rashid catheter; placed in the emergency department -Nutrition; regular diet DISPOSITION - anticipate discharge to inpatient rehabilitation today or tomorrow when a bed is available Brandyn Grayson M.D.
[2019-02-02] MEDS: Metoprolol Succinate 25 MG Tab.ER PO SCH (21:57)
[2019-02-02] MEDS: Pantoprazole 40 MG Tab.CR PO SCH (21:57)
[2019-02-03] MEDS: Acetaminophen 325 MG Tab PO PRN ×3 (04:24→19:43)
[2019-02-03] MEDS: HYDROmorphone 2 MG Tab PO PRN ×2 (04:24→12:56)
[2019-02-03] MEDS: Sertraline 25 MG Tab PO SCH ×2 (08:56→20:54)
[2019-02-03] MEDS: Enoxaparin 40 MG/0.4 ML Syringe SUBCUT SCH (08:56)
--- NOTE | 2019-02-03 10:13 | PCM.CONS ---
H&P History of Present Illness - General Date of Service: 01/29/19 Admit Problem/Dx: Admission Diagnosis/Problem Admission Diagnosis/Problem Fracture of femur Source of Information: Patient, Provider History Limitations: Reports: No Limitations - History of Present Illness Initial Comments - Free Text/Narative: 64 year old with recent right TKA slipped and fell leaving a restaurant 01/28 landing directly onto her right knee. She heard and felt a crack and was unable to weight bear. Evaluation in the ED showed a displaced fracture of the right distal femur just above the prosthesis. She is admitted for treatment. Onset of Symptoms: Reports: Sudden Symptom Onset Date: 01/28/19 Location: Reports: Lower Extremity, Right Quality: Reports: Stabbing Severity: Severe Improves with: Reports: Immobilization Worsens with: Reports: Movement Context: Reports: Other (fall) Associated Symptoms: Reports: No Other Symptoms Right Hip Pain Score (Numeric/FACES): 4 right knee Pain Score (Numeric/FACES): 2 - Related Data Allergies/Adverse Reactions: Allergies Allergy/AdvReac Type Severity Reaction Status Date / Time minocycline Allergy Rash Verified 01/28/19 21:21 Sulfa (Sulfonamide Allergy Rash Verified 01/28/19 21:21 Antibiotics) cefdinir [From Omnicef] AdvReac Nausea and Verified 02/03/19 08:03 Vomiting hydrocodone bitartrate AdvReac Nausea and Verified 02/03/19 08:03 [From Vicodin] Vomiting levofloxacin [From Levaquin] AdvReac Muscle Verified 02/03/19 08:03 Aches Home Medications: Home Meds Sertraline [Zoloft] 25 mg PO QPM 10/01/18 [History] Metoprolol Succinate 25 mg PO DAILY 12/15/18 [History] Sertraline [Zoloft] 12.5 mg PO QAM 12/15/18 [History] Past Medical History 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: Reports: Hypertension [employer] History: Reports: Musculoskeletal History: Reports: Fracture, Other (See Below) Other Musculoskeletal History: s/p RTKA 12/15/18 Neurological History: Reports: Migraines, Vertigo, Other (See Below) Other Neuro History: herniated disc with PT, trigger point injections, cortisone shots, and prolotherapy Psychiatric History: Reports: Depression Endocrine/Metabolic History: Reports: Obesity/BMI 30+ - Infectious Disease History Infectious Disease History: Reports: Mumps - Past Surgical History GI Surgical History: Reports: Colonoscopy Female Surgical History: Reports: Tubal Ligation, Other (See Below) Other Female Surgeries/Procedures: uterine biopsy, lumpectomy of left breast Musculoskeletal Surgical History: Reports: Arthroscopic Knee, Knee Replacement, Other (See Below) Other Musculoskeletal Surgeries/Procedures:: right ankle Social & Family History - Family History Family Medical History: Noncontributory - Tobacco Use Smoking Status *Q: Never Smoker Second Hand Smoke Exposure: No - Caffeine Use Caffeine Use: Reports: None - Recreational Drug Use Recreational Drug Use: No H&P Review of Systems - Review of Systems: Review Of Systems: ROS reveals no pertinent complaints other than HPI. Exam - Exam Exam: See Below - Vital Signs Vital Signs: Last Vital Signs Temp 37.2 C 02/03/19 07:00 Pulse 78 02/03/19 07:00 Resp 16 02/03/19 07:00 BP 166/71 H 02/03/19 07:00 Pulse Ox 97 02/03/19 07:00 Weight: 113.398 kg - Exam General: Alert, Oriented, 4 HEENT: PERRLA, Hearing Intact, Mucosa Moist & Lozano, Nares Patent, Normal Nasal Septum, Posterior Pharynx Clear, Conjunctiva Clear, EOMI, EACs Clear, TMs Clear Neck: Supple, Trachea Midline, 2 Extremities: Other (ROM not attempted, distal N/V intact) Peripheral Pulses: 1+: Dorsalis Pedis (R), 2+: Dorsalis Pedis (L) Skin: Warm, Dry, Intact, Incision, Other (Incision healing well) Neurological: Cranial Nerves Intact, Reflexes Equal Bilateral Neuro Extensive - Mental Status: Alert, Oriented x3, Normal Mood/Affect, Normal Cognition Neuro Extensive - Motor, Sensory, Reflexes: CN II-XII Intact, Normal Gait, Normal Reflexes Psychiatric: Alert, Normal Affect, Normal Mood - Patient Data Result Diagrams: 01/30/19 08:27 01/30/19 08:27 Consult PN Assessment/Plan Procedures: Procedures BLOOD TYPING SEROLOGIC ABO (12/15/18) BLOOD TYPING SEROLOGIC RH(D) (12/15/18) COMP SCREEN MAMMOGRAM ADD-ON (08/26/14) COMPLETE CBC AUTOMATED (12/15/18) CT SOFT TISSUE NECK W/DYE (12/13/17) GAIT TRAINING THERAPY (01/23/19) HOT OR COLD PACKS THERAPY (01/23/19) MANUAL THERAPY 1/> REGIONS (01/23/19) METABOLIC PANEL TOTAL CA (12/15/18) MRI BRAIN STEM W/O DYE (06/01/15) OT EVAL LOW COMPLEX 30 MIN (12/15/18) PT EVAL LOW COMPLEX 20 MIN (12/24/18) RBC ANTIBODY SCREEN (12/15/18) ROUTINE VENIPUNCTURE (12/15/18) SCR MAMMO BI INCL CAD (12/13/17) SELF CARE MNGMENT TRAINING (12/15/18) THERAPEUTIC ACTIVITIES (12/15/18) THERAPEUTIC EXERCISES (01/27/19) TOTAL KNEE ARTHROPLASTY (12/15/18) X-RAY EXAM OF KNEE 1 OR 2 (12/15/18) X-RAY EXAM OF KNEE 3 (10/02/18) X-RAY EXAM OF KNEES (10/02/18) (1) Femur fracture, right SNOMED Code(s): 18561738 Code(s): S72.91XA - UNSP FRACTURE OF RIGHT FEMUR, INIT FOR CLOS FX Current Visit: Yes Qualifiers: Encounter type: initial encounter Femur location: distal, unspecified portion Fracture type: closed Fracture morphology: unspecified fracture morphology Qualified Code(s): S72.401A - Unspecified fracture of lower end of right femur, initial encounter for closed fracture (2) Status post total right knee replacement SNOMED Code(s): 9520990926656, 8272725843620 Code(s): Z96.651 - PRESENCE OF RIGHT ARTIFICIAL KNEE JOINT Current Visit: No Problem List Initiated/Reviewed/Updated: Yes My Orders Last 24 Hours: My Active Orders 02/02/19 10:02 OT Evaluation and Treatment [CONS] Routine Plan: Periprosthetic fracture right distal femur. This will require fixation. Plan ORIF with lateral plate and locking screws. Discussed plan with patient and she is in agreement. Risks, benefits and potential complication discussed.
--- NOTE | 2019-02-03 10:20 | PCM.SURGPN ---
- General Info Date of Service: 01/30/19 POD#: 1 Functional Status: Reports: Pain Controlled, Tolerating Diet - Review of Systems General: Reports: No Symptoms HEENT: Reports: No Symptoms Pulmonary: Reports: No Symptoms Cardiovascular: Reports: No Symptoms Gastrointestinal: Reports: No Symptoms Skin: Reports: No Symptoms Neurological: Reports: No Symptoms Psychiatric: Reports: No Symptoms - Patient Data Vitals - Most Recent: Last Vital Signs Temp 37.2 C 02/03/19 07:00 Pulse 78 02/03/19 07:00 Resp 16 02/03/19 07:00 BP 166/71 H 02/03/19 07:00 Pulse Ox 97 02/03/19 07:00 Weight - Most Recent: 113.398 kg I&O - Last 24 Hours: Intake & Output 02/02/19 02/03/19 02/03/19 22:59 06:59 14:59 Intake Total 360 500 Output Total 400 700 Balance -40 -700 500 Med Orders - Current: Current Medications Acetaminophen (Tylenol) 650 mg PO Q4H PRN PRN Reason: Fever Last Admin: 02/03/19 04:24 Dose: 650 mg Enoxaparin Sodium (Lovenox) 40 mg SUBCUT DAILY [facility] Last Admin: 02/03/19 08:56 Dose: 40 mg Hydromorphone HCl (Dilaudid) 2 mg PO Q3H PRN PRN Reason: Pain (moderate 4-6) Last Admin: 02/03/19 04:24 Dose: 2 mg Promethazine HCl 6.25 mg/ (Sodium Chloride) 50.25 mls @ 200 mls/hr IV Q6H PRN PRN Reason: Nausea/Vomiting Metoprolol Succinate (Toprol Xl) 25 mg PO BEDTIME [facility] Last Admin: 02/02/19 21:57 Dose: 25 mg Morphine Sulfate (Morphine) 2 mg IVPUSH Q1H PRN PRN Reason: Pain (severe 7-10) Last Admin: 01/29/19 23:25 Dose: 2 mg Pantoprazole Sodium (Protonix) 40 mg PO BEDTIME [facility] Last Admin: 02/02/19 21:57 Dose: 40 mg Senna/Docusate Sodium (Senna Plus) 1 tab PO BID PRN PRN Reason: Constipation Last Admin: 01/31/19 08:11 Dose: 1 tab Sertraline HCl (Zoloft) 12.5 mg PO DAILY [facility] Last Admin: 02/03/19 08:56 Dose: 12.5 mg Sertraline HCl (Zoloft) 25 mg PO BEDTIME [facility] Last Admin: 02/02/19 22:00 Dose: 25 mg Tramadol HCl (Ultram) 50 mg PO Q4H PRN PRN Reason: Pain (mild 1-3) Last Admin: 01/30/19 08:33 Dose: 50 mg Discontinued Medications Fentanyl (Sublimaze) Confirm Administered Dose 100 mcg .ROUTE .STK-MED ONE Stop: 01/29/19 13:22 Sodium Chloride (Normal Saline) 1,000 mls @ 150 mls/hr IV ASDIRECTED [facility] Last Admin: 01/30/19 00:56 Dose: 150 mls/hr Clindamycin Phosphate 900 mg/ (Sodium Chloride) 106 mls @ 200 mls/hr IV ONETIME ONE Stop: 01/29/19 16:01 Last Admin: 01/29/19 16:48 Dose: Not Given Lactated Ringer's (Ringers, Lactated) Confirm Administered Dose 1,000 mls @ as directed .ROUTE .STK-MED ONE Stop: 01/29/19 17:27 Clindamycin Phosphate 900 mg/ (Sodium Chloride) 106 mls @ 200 mls/hr IV Q8H DOT Stop: 01/30/19 16:32 Last Admin: 01/30/19 16:46 Dose: 200 mls/hr Sodium Chloride (Normal Saline) 1,000 mls @ 75 mls/hr IV ASDIRECTED [facility] Last Admin: 01/31/19 08:14 Dose: 75 mls/hr Metoprolol Succinate (Toprol Xl) 25 mg PO DAILY [facility] Last Admin: 01/28/19 23:33 Dose: 25 mg Midazolam HCl (Versed 1 Mg/Ml) Confirm Administered Dose 2 mg .ROUTE .STK-MED ONE Stop: 01/29/19 13:23 Morphine Sulfate (Morphine) 2 mg IVPUSH Q4H PRN PRN Reason: Pain (severe 7-10) Last Admin: 01/29/19 22:15 Dose: 2 mg Ondansetron HCl (Zofran) 4 mg IVPUSH ONETIME ONE Stop: 01/28/19 22:25 Last Admin: 01/28/19 22:27 Dose: 4 mg Ondansetron HCl (Zofran) Confirm Administered Dose 4 mg .ROUTE .STK-MED ONE Stop: 01/28/19 22:26 Last Admin: 01/28/19 22:33 Dose: Not Given Pantoprazole Sodium (Protonix Iv) 40 mg IV Q24H DOT Last Admin: 01/30/19 21:35 Dose: 40 mg Povidone Iodine (Betadine 10% Soln) Confirm Administered Dose 1 ml .ROUTE .STK- MED ONE Stop: 01/29/19 14:16 Propofol (Diprivan 20 Ml) Confirm Administered Dose 200 mg .ROUTE .STK-MED ONE Stop: 01/29/19 13:22 Propofol (Diprivan 20 Ml) Confirm Administered Dose 200 mg .ROUTE .STK-MED ONE Stop: 01/29/19 17:15 Propofol (Diprivan 20 Ml) Confirm Administered Dose 200 mg .ROUTE .STK-MED ONE Stop: 01/29/19 18:25 Sertraline HCl (Zoloft) 25 mg PO BEDTIME DOT Sugammadex Sodium (Bridion) Confirm Administered Dose 200 mg .ROUTE .STK-MED ONE Stop: 01/29/19 13:33 - Exam Wound/Incisions: No Drainage General: Alert, Oriented HEENT: Pupils Equal Neck: Supple Lungs: Clear to Auscultation, Normal Respiratory Effort Skin: Warm, Dry, Intact Neurological: No New Focal Deficit Psy/Mental Status: Alert, Normal Affect, Normal Mood - Problem List & Annotations (1) Femur fracture, right SNOMED Code(s): 33983882 Code(s): S72.91XA - UNSP FRACTURE OF RIGHT FEMUR, INIT FOR CLOS FX Status: Acute Current Visit: Yes Qualifiers: Encounter type: initial encounter Femur location: distal, unspecified portion Fracture type: closed Fracture morphology: unspecified fracture morphology Qualified Code(s): S72.401A - Unspecified fracture of lower end of right femur, initial encounter for closed fracture (2) Status post total right knee replacement SNOMED Code(s): 0981990714927, 5205410413274 Code(s): Z96.651 - PRESENCE OF RIGHT ARTIFICIAL KNEE JOINT Status: Acute Current Visit: No - Problem List Review Problem List Initiated/Reviewed/Updated: Yes - My Orders Last 24 Hours: Active Orders 24 hr Category Date Time Status OT Evaluation and Treatment [CONS] Routine Cons 02/02/19 10:02 Active Medication Orders Acetaminophen (Tylenol) 650 mg PO Q4H PRN PRN Reason: Fever Last Admin: 02/03/19 04:24 Dose: 650 mg Admin: 02/02/19 21:54 Dose: 650 mg Admin: 02/02/19 17:35 Dose: 650 mg Admin: 02/02/19 08:41 Dose: 650 mg Admin: 02/01/19 20:46 Dose: 650 mg Admin: 02/01/19 11:25 Dose: 650 mg Admin: 02/01/19 04:44 Dose: 650 mg Admin: 01/31/19 21:30 Dose: 650 mg Admin: 01/31/19 17:09 Dose: 650 mg Admin: 01/31/19 11:32 Dose: 650 mg Admin: 01/31/19 05:45 Dose: 650 mg Admin: 01/30/19 23:14 Dose: 650 mg Admin: 01/30/19 18:56 Dose: 650 mg Admin: 01/30/19 10:40 Dose: 650 mg Admin: 01/30/19 04:20 Dose: 650 mg Enoxaparin Sodium (Lovenox) 40 mg SUBCUT DAILY [facility] Last Admin: 02/03/19 08:56 Dose: 40 mg Admin: 02/02/19 08:43 Dose: 40 mg Admin: 02/01/19 08:50 Dose: 40 mg Admin: 01/31/19 08:11 Dose: 40 mg Admin: 01/30/19 09:40 Dose: 40 mg Hydromorphone HCl (Dilaudid) 2 mg PO Q3H PRN PRN Reason: Pain (moderate 4-6) Last Admin: 02/03/19 04:24 Dose: 2 mg Admin: 02/02/19 21:54 Dose: 2 mg Admin: 02/02/19 17:35 Dose: 2 mg Admin: 02/02/19 08:41 Dose: 2 mg Admin: 02/01/19 20:47 Dose: 2 mg Admin: 02/01/19 14:50 Dose: 2 mg Admin: 02/01/19 04:43 Dose: 2 mg Admin: 01/31/19 21:30 Dose: 2 mg Admin: 01/31/19 17:09 Dose: 2 mg Admin: 01/31/19 11:32 Dose: 2 mg Admin: 01/31/19 05:45 Dose: 2 mg Admin: 01/30/19 23:14 Dose: 2 mg Admin: 01/30/19 18:56 Dose: 2 mg Admin: 01/30/19 14:07 Dose: 2 mg Admin: 01/30/19 10:40 Dose: 2 mg Admin: 01/30/19 04:25 Dose: 2 mg Admin: 01/30/19 01:02 Dose: 2 mg Admin: 01/29/19 20:41 Dose: 2 mg Promethazine HCl 6.25 mg/ (Sodium Chloride) 50.25 mls @ 200 mls/hr IV Q6H PRN PRN Reason: Nausea/Vomiting Metoprolol Succinate (Toprol Xl) 25 mg PO BEDTIME [facility] Last Admin: 02/02/19 21:57 Dose: 25 mg Admin: 02/01/19 20:47 Dose: 25 mg Admin: 01/31/19 21:31 Dose: 25 mg Admin: 01/30/19 20:13 Dose: 25 mg Admin: 01/29/19 21:18 Dose: 25 mg Morphine Sulfate (Morphine) 2 mg IVPUSH Q1H PRN PRN Reason: Pain (severe 7-10) Last Admin: 01/29/19 23:25 Dose: 2 mg Pantoprazole Sodium (Protonix) 40 mg PO BEDTIME [facility] Last Admin: 02/02/19 21:57 Dose: 40 mg Admin: 02/01/19 20:47 Dose: 40 mg Admin: 01/31/19 21:29 Dose: 40 mg Senna/Docusate Sodium (Senna Plus) 1 tab PO BID PRN PRN Reason: Constipation Last Admin: 01/31/19 08:11 Dose: 1 tab Admin: 01/30/19 10:41 Dose: 1 tab Sertraline HCl (Zoloft) 12.5 mg PO DAILY [facility] Last Admin: 02/03/19 08:56 Dose: 12.5 mg Admin: 02/02/19 08:43 Dose: 12.5 mg Admin: 02/01/19 08:53 Dose: 12.5 mg Admin: 01/31/19 08:11 Dose: 12.5 mg Admin: 01/30/19 08:34 Dose: 12.5 mg Admin: 01/29/19 09:33 Dose: 12.5 mg Sertraline HCl (Zoloft) 25 mg PO BEDTIME [facility] Last Admin: 02/02/19 22:00 Dose: 25 mg Admin: 02/01/19 20:47 Dose: 25 mg Admin: 01/31/19 21:28 Dose: 25 mg Admin: 01/30/19 20:13 Dose: 25 mg Admin: 01/29/19 21:17 Dose: 25 mg Admin: 01/28/19 23:33 Dose: 25 mg Tramadol HCl (Ultram) 50 mg PO Q4H PRN PRN Reason: Pain (mild 1-3) Last Admin: 01/30/19 08:33 Dose: 50 mg - Assessment Assessment (Free Text/Narrative):: Did very well post op, no complaints today, pain controlled. - Plan Plan (Free Text/Narrative):: Start PT, TTWB on right, SNF vs rehab on discharge
--- NOTE | 2019-02-03 10:24 | PCM.SURGPN ---
- General Info Date of Service: 01/31/19 POD#: 2 Functional Status: Reports: Pain Controlled, Tolerating Diet, Ambulating - Review of Systems General: Reports: No Symptoms HEENT: Reports: No Symptoms Pulmonary: Reports: No Symptoms Cardiovascular: Reports: No Symptoms Gastrointestinal: Reports: No Symptoms Genitourinary: Reports: No Symptoms Skin: Reports: No Symptoms Neurological: Reports: No Symptoms Psychiatric: Reports: No Symptoms - Patient Data Vitals - Most Recent: Last Vital Signs Temp 37.2 C 02/03/19 07:00 Pulse 78 02/03/19 07:00 Resp 16 02/03/19 07:00 BP 166/71 H 02/03/19 07:00 Pulse Ox 97 02/03/19 07:00 Weight - Most Recent: 113.398 kg I&O - Last 24 Hours: Intake & Output 02/02/19 02/03/19 02/03/19 22:59 06:59 14:59 Intake Total 360 500 Output Total 400 700 Balance -40 -700 500 Med Orders - Current: Current Medications Acetaminophen (Tylenol) 650 mg PO Q4H PRN PRN Reason: Fever Last Admin: 02/03/19 04:24 Dose: 650 mg Enoxaparin Sodium (Lovenox) 40 mg SUBCUT DAILY [facility] Last Admin: 02/03/19 08:56 Dose: 40 mg Hydromorphone HCl (Dilaudid) 2 mg PO Q3H PRN PRN Reason: Pain (moderate 4-6) Last Admin: 02/03/19 04:24 Dose: 2 mg Promethazine HCl 6.25 mg/ (Sodium Chloride) 50.25 mls @ 200 mls/hr IV Q6H PRN PRN Reason: Nausea/Vomiting Metoprolol Succinate (Toprol Xl) 25 mg PO BEDTIME [facility] Last Admin: 02/02/19 21:57 Dose: 25 mg Morphine Sulfate (Morphine) 2 mg IVPUSH Q1H PRN PRN Reason: Pain (severe 7-10) Last Admin: 01/29/19 23:25 Dose: 2 mg Pantoprazole Sodium (Protonix) 40 mg PO BEDTIME DOT Last Admin: 02/02/19 21:57 Dose: 40 mg Senna/Docusate Sodium (Senna Plus) 1 tab PO BID PRN PRN Reason: Constipation Last Admin: 01/31/19 08:11 Dose: 1 tab Sertraline HCl (Zoloft) 12.5 mg PO DAILY [facility] Last Admin: 02/03/19 08:56 Dose: 12.5 mg Sertraline HCl (Zoloft) 25 mg PO BEDTIME [facility] Last Admin: 02/02/19 22:00 Dose: 25 mg Tramadol HCl (Ultram) 50 mg PO Q4H PRN PRN Reason: Pain (mild 1-3) Last Admin: 01/30/19 08:33 Dose: 50 mg Discontinued Medications Fentanyl (Sublimaze) Confirm Administered Dose 100 mcg .ROUTE .STK-MED ONE Stop: 01/29/19 13:22 Sodium Chloride (Normal Saline) 1,000 mls @ 150 mls/hr IV ASDIRECTED [facility] Last Admin: 01/30/19 00:56 Dose: 150 mls/hr Clindamycin Phosphate 900 mg/ (Sodium Chloride) 106 mls @ 200 mls/hr IV ONETIME ONE Stop: 01/29/19 16:01 Last Admin: 01/29/19 16:48 Dose: Not Given Lactated Ringer's (Ringers, Lactated) Confirm Administered Dose 1,000 mls @ as directed .ROUTE .STK-MED ONE Stop: 01/29/19 17:27 Clindamycin Phosphate 900 mg/ (Sodium Chloride) 106 mls @ 200 mls/hr IV Q8H DOT Stop: 01/30/19 16:32 Last Admin: 01/30/19 16:46 Dose: 200 mls/hr Sodium Chloride (Normal Saline) 1,000 mls @ 75 mls/hr IV ASDIRECTED [facility] Last Admin: 01/31/19 08:14 Dose: 75 mls/hr Metoprolol Succinate (Toprol Xl) 25 mg PO DAILY [facility] Last Admin: 01/28/19 23:33 Dose: 25 mg Midazolam HCl (Versed 1 Mg/Ml) Confirm Administered Dose 2 mg .ROUTE .STK-MED ONE Stop: 01/29/19 13:23 Morphine Sulfate (Morphine) 2 mg IVPUSH Q4H PRN PRN Reason: Pain (severe 7-10) Last Admin: 01/29/19 22:15 Dose: 2 mg Ondansetron HCl (Zofran) 4 mg IVPUSH ONETIME ONE Stop: 01/28/19 22:25 Last Admin: 01/28/19 22:27 Dose: 4 mg Ondansetron HCl (Zofran) Confirm Administered Dose 4 mg .ROUTE .STK-MED ONE Stop: 01/28/19 22:26 Last Admin: 01/28/19 22:33 Dose: Not Given Pantoprazole Sodium (Protonix Iv) 40 mg IV Q24H DOT Last Admin: 01/30/19 21:35 Dose: 40 mg Povidone Iodine (Betadine 10% Soln) Confirm Administered Dose 1 ml .ROUTE .STK- MED ONE Stop: 01/29/19 14:16 Propofol (Diprivan 20 Ml) Confirm Administered Dose 200 mg .ROUTE .STK-MED ONE Stop: 01/29/19 13:22 Propofol (Diprivan 20 Ml) Confirm Administered Dose 200 mg .ROUTE .STK-MED ONE Stop: 01/29/19 17:15 Propofol (Diprivan 20 Ml) Confirm Administered Dose 200 mg .ROUTE .STK-MED ONE Stop: 01/29/19 18:25 Sertraline HCl (Zoloft) 25 mg PO BEDTIME DOT Sugammadex Sodium (Bridion) Confirm Administered Dose 200 mg .ROUTE .STK-MED ONE Stop: 01/29/19 13:33 - Exam Wound/Incisions: Dressing Dry and Intact General: Alert, Oriented HEENT: Pupils Equal Neck: Supple Extremities: Other (negative Angela's, minimal swelling in lower leg and foot) Skin: Warm, Dry, Intact Neurological: No New Focal Deficit Psy/Mental Status: Alert, Normal Affect, Normal Mood - Problem List & Annotations (1) Femur fracture, right SNOMED Code(s): 28833974 Code(s): S72.91XA - UNSP FRACTURE OF RIGHT FEMUR, INIT FOR CLOS FX Status: Acute Current Visit: Yes Qualifiers: Encounter type: initial encounter Femur location: distal, unspecified portion Fracture type: closed Fracture morphology: unspecified fracture morphology Qualified Code(s): S72.401A - Unspecified fracture of lower end of right femur, initial encounter for closed fracture (2) Status post total right knee replacement SNOMED Code(s): 7794136866627, 8824470773898 Code(s): Z96.651 - PRESENCE OF RIGHT ARTIFICIAL KNEE JOINT Status: Acute Current Visit: No - Problem List Review Problem List Initiated/Reviewed/Updated: Yes - My Orders Last 24 Hours: Active Orders 24 hr Category Date Time Status OT Evaluation and Treatment [CONS] Routine Cons 02/02/19 10:02 Active Medication Orders Acetaminophen (Tylenol) 650 mg PO Q4H PRN PRN Reason: Fever Last Admin: 02/03/19 04:24 Dose: 650 mg Admin: 02/02/19 21:54 Dose: 650 mg Admin: 02/02/19 17:35 Dose: 650 mg Admin: 02/02/19 08:41 Dose: 650 mg Admin: 02/01/19 20:46 Dose: 650 mg Admin: 02/01/19 11:25 Dose: 650 mg Admin: 02/01/19 04:44 Dose: 650 mg Admin: 01/31/19 21:30 Dose: 650 mg Admin: 01/31/19 17:09 Dose: 650 mg Admin: 01/31/19 11:32 Dose: 650 mg Admin: 01/31/19 05:45 Dose: 650 mg Admin: 01/30/19 23:14 Dose: 650 mg Admin: 01/30/19 18:56 Dose: 650 mg Admin: 01/30/19 10:40 Dose: 650 mg Admin: 01/30/19 04:20 Dose: 650 mg Enoxaparin Sodium (Lovenox) 40 mg SUBCUT DAILY [facility] Last Admin: 02/03/19 08:56 Dose: 40 mg Admin: 02/02/19 08:43 Dose: 40 mg Admin: 02/01/19 08:50 Dose: 40 mg Admin: 01/31/19 08:11 Dose: 40 mg Admin: 01/30/19 09:40 Dose: 40 mg Hydromorphone HCl (Dilaudid) 2 mg PO Q3H PRN PRN Reason: Pain (moderate 4-6) Last Admin: 02/03/19 04:24 Dose: 2 mg Admin: 02/02/19 21:54 Dose: 2 mg Admin: 02/02/19 17:35 Dose: 2 mg Admin: 02/02/19 08:41 Dose: 2 mg Admin: 02/01/19 20:47 Dose: 2 mg Admin: 02/01/19 14:50 Dose: 2 mg Admin: 02/01/19 04:43 Dose: 2 mg Admin: 01/31/19 21:30 Dose: 2 mg Admin: 01/31/19 17:09 Dose: 2 mg Admin: 01/31/19 11:32 Dose: 2 mg Admin: 01/31/19 05:45 Dose: 2 mg Admin: 01/30/19 23:14 Dose: 2 mg Admin: 01/30/19 18:56 Dose: 2 mg Admin: 01/30/19 14:07 Dose: 2 mg Admin: 01/30/19 10:40 Dose: 2 mg Admin: 01/30/19 04:25 Dose: 2 mg Admin: 01/30/19 01:02 Dose: 2 mg Admin: 01/29/19 20:41 Dose: 2 mg Promethazine HCl 6.25 mg/ (Sodium Chloride) 50.25 mls @ 200 mls/hr IV Q6H PRN PRN Reason: Nausea/Vomiting Metoprolol Succinate (Toprol Xl) 25 mg PO BEDTIME [facility] Last Admin: 02/02/19 21:57 Dose: 25 mg Admin: 02/01/19 20:47 Dose: 25 mg Admin: 01/31/19 21:31 Dose: 25 mg Admin: 01/30/19 20:13 Dose: 25 mg Admin: 01/29/19 21:18 Dose: 25 mg Morphine Sulfate (Morphine) 2 mg IVPUSH Q1H PRN PRN Reason: Pain (severe 7-10) Last Admin: 01/29/19 23:25 Dose: 2 mg Pantoprazole Sodium (Protonix) 40 mg PO BEDTIME DOT Last Admin: 02/02/19 21:57 Dose: 40 mg Admin: 02/01/19 20:47 Dose: 40 mg Admin: 01/31/19 21:29 Dose: 40 mg Senna/Docusate Sodium (Senna Plus) 1 tab PO BID PRN PRN Reason: Constipation Last Admin: 01/31/19 08:11 Dose: 1 tab Admin: 01/30/19 10:41 Dose: 1 tab Sertraline HCl (Zoloft) 12.5 mg PO DAILY [facility] Last Admin: 02/03/19 08:56 Dose: 12.5 mg Admin: 02/02/19 08:43 Dose: 12.5 mg Admin: 02/01/19 08:53 Dose: 12.5 mg Admin: 01/31/19 08:11 Dose: 12.5 mg Admin: 01/30/19 08:34 Dose: 12.5 mg Admin: 01/29/19 09:33 Dose: 12.5 mg Sertraline HCl (Zoloft) 25 mg PO BEDTIME DOT Last Admin: 02/02/19 22:00 Dose: 25 mg Admin: 02/01/19 20:47 Dose: 25 mg Admin: 01/31/19 21:28 Dose: 25 mg Admin: 01/30/19 20:13 Dose: 25 mg Admin: 01/29/19 21:17 Dose: 25 mg Admin: 01/28/19 23:33 Dose: 25 mg Tramadol HCl (Ultram) 50 mg PO Q4H PRN PRN Reason: Pain (mild 1-3) Last Admin: 01/30/19 08:33 Dose: 50 mg - Assessment Assessment (Free Text/Narrative):: Very comfortable up in chair and doing well with PT, leaning towards rehab in [place] if available. - Plan Plan (Free Text/Narrative):: Continue PT/OT, Rashid out, dressing changed, checking discharge options.
--- NOTE | 2019-02-03 13:02 | PCM.PN ---
- General Info Date of Service: 02/03/19 Subjective Update: No acute events overnight. Pain is well-controlled at this time. She is ambulating with assistance. No fevers. No shortness of breath. Waiting for rehabilitation placement at this time. - Patient Data Vitals - Most Recent: Last Vital Signs Temp 37.1 C 02/03/19 10:49 Pulse 76 02/03/19 10:49 Resp 18 02/03/19 10:49 BP 167/69 H 02/03/19 10:49 Pulse Ox 96 02/03/19 10:49 Weight - Most Recent: 113.398 kg I&O - Last 24 Hours: Intake & Output 02/02/19 02/03/19 02/03/19 22:59 06:59 14:59 Intake Total 360 500 Output Total 400 700 300 Balance -40 -700 200 Lab Results Last 24 Hours: Laboratory Results - last 24 hr 02/03/19 Range/Units 11:12 Hgb 8.2 L (12.0-15.0) g/dL Med Orders - Current: Current Medications Acetaminophen (Tylenol) 650 mg PO Q4H PRN PRN Reason: Fever Last Admin: 02/03/19 12:55 Dose: 650 mg Enoxaparin Sodium (Lovenox) 40 mg SUBCUT DAILY ON [facility] OF [facility] Last Admin: 02/03/19 08:56 Dose: 40 mg Hydromorphone HCl (Dilaudid) 2 mg PO Q3H PRN PRN Reason: Pain (moderate 4-6) Last Admin: 02/03/19 12:56 Dose: 2 mg Promethazine HCl 6.25 mg/ (Sodium Chloride) 50.25 mls @ 200 mls/hr IV Q6H PRN PRN Reason: Nausea/Vomiting Metoprolol Succinate (Toprol Xl) 25 mg PO BEDTIME ON [facility] Last Admin: 02/02/19 21:57 Dose: 25 mg Morphine Sulfate (Morphine) 2 mg IVPUSH Q1H PRN PRN Reason: Pain (severe 7-10) Last Admin: 01/29/19 23:25 Dose: 2 mg Pantoprazole Sodium (Protonix) 40 mg PO BEDTIME [facility] Last Admin: 02/02/19 21:57 Dose: 40 mg Senna/Docusate Sodium (Senna Plus) 1 tab PO BID PRN PRN Reason: Constipation Last Admin: 01/31/19 08:11 Dose: 1 tab Sertraline HCl (Zoloft) 12.5 mg PO DAILY [facility] Last Admin: 02/03/19 08:56 Dose: 12.5 mg Sertraline HCl (Zoloft) 25 mg PO BEDTIME [facility] Last Admin: 02/02/19 22:00 Dose: 25 mg Tramadol HCl (Ultram) 50 mg PO Q4H PRN PRN Reason: Pain (mild 1-3) Last Admin: 01/30/19 08:33 Dose: 50 mg Discontinued Medications Fentanyl (Sublimaze) Confirm Administered Dose 100 mcg .ROUTE .STK-MED ONE Stop: 01/29/19 13:22 Sodium Chloride (Normal Saline) 1,000 mls @ 150 mls/hr IV ASDIRECTED ON LICENSE OF [facility] Last Admin: 01/30/19 00:56 Dose: 150 mls/hr Clindamycin Phosphate 900 mg/ (Sodium Chloride) 106 mls @ 200 mls/hr IV ONETIME ONE Stop: 01/29/19 16:01 Last Admin: 01/29/19 16:48 Dose: Not Given Lactated Ringer's (Ringers, Lactated) Confirm Administered Dose 1,000 mls @ as directed .ROUTE .STK-MED ONE Stop: 01/29/19 17:27 Clindamycin Phosphate 900 mg/ (Sodium Chloride) 106 mls @ 200 mls/hr IV Q8H DOT Stop: 01/30/19 16:32 Last Admin: 01/30/19 16:46 Dose: 200 mls/hr Sodium Chloride (Normal Saline) 1,000 mls @ 75 mls/hr IV ASDIRECTED ON [facility] Last Admin: 01/31/19 08:14 Dose: 75 mls/hr Metoprolol Succinate (Toprol Xl) 25 mg PO DAILY [facility] Last Admin: 01/28/19 23:33 Dose: 25 mg Midazolam HCl (Versed 1 Mg/Ml) Confirm Administered Dose 2 mg .ROUTE .STK-MED ONE Stop: 01/29/19 13:23 Morphine Sulfate (Morphine) 2 mg IVPUSH Q4H PRN PRN Reason: Pain (severe 7-10) Last Admin: 01/29/19 22:15 Dose: 2 mg Ondansetron HCl (Zofran) 4 mg IVPUSH ONETIME ONE Stop: 01/28/19 22:25 Last Admin: 01/28/19 22:27 Dose: 4 mg Ondansetron HCl (Zofran) Confirm Administered Dose 4 mg .ROUTE .STK-MED ONE Stop: 01/28/19 22:26 Last Admin: 01/28/19 22:33 Dose: Not Given Pantoprazole Sodium (Protonix Iv) 40 mg IV Q24H [facility] Last Admin: 01/30/19 21:35 Dose: 40 mg Povidone Iodine (Betadine 10% Soln) Confirm Administered Dose 1 ml .ROUTE .STK- MED ONE Stop: 01/29/19 14:16 Propofol (Diprivan 20 Ml) Confirm Administered Dose 200 mg .ROUTE .STK-MED ONE Stop: 01/29/19 13:22 Propofol (Diprivan 20 Ml) Confirm Administered Dose 200 mg .ROUTE .STK-MED ONE Stop: 01/29/19 17:15 Propofol (Diprivan 20 Ml) Confirm Administered Dose 200 mg .ROUTE .STK-MED ONE Stop: 01/29/19 18:25 Sertraline HCl (Zoloft) 25 mg PO BEDTIME DOT Sugammadex Sodium (Bridion) Confirm Administered Dose 200 mg .ROUTE .STK-MED ONE Stop: 01/29/19 13:33 - Exam Quality Assessment: No: Supplemental Oxygen General: Alert, Oriented, Cooperative, No Acute Distress Lungs: Normal Respiratory Effort GI/Abdominal Exam: Soft, No Distention Extremities: No Pedal Edema Psy/Mental Status: Alert, Normal Affect - Problem List Review Problem List Initiated/Reviewed/Updated: Yes - Plan Plan:: RIGHT FEMUR FRACTURE - status post total surgical repair on 01/30 (ORIF with lateral frag plate). She is only allowed toe-touch weightbearing at this time but is doing well postoperatively. -Postoperative care per Dr. Valdovinos -Physical therapy and occupational therapy consultation ANEMIA DUE TO BLOOD LOSS - hemoglobin down to 8.2. I suspect this is postsurgical change but I don't believe there is active bleeding at this time. -Transfuse if less than 7 RIGHT POSTERIOR CHEST WALL PAIN - pain has resolved, CT scan of the shoulder showed no evidence of fracture MAINTENANCE ISSUES -DVT prophylaxis; Lovenox 40 mg subcutaneous daily 1 month -GI prophylaxis; not indicated -Rashid catheter; removed -Nutrition; regular diet DISPOSITION - anticipate discharge to acute versus subacute rehabilitation today or tomorrow when a bed is available Brandyn Grayson M.D.
[2019-02-03] MEDS: Pantoprazole 40 MG Tab.CR PO SCH (20:53)
[2019-02-03] MEDS: Metoprolol Succinate 25 MG Tab.ER PO SCH (20:54)
[2019-02-04] MEDS: Acetaminophen 325 MG Tab PO PRN ×2 (05:36→11:50)
[2019-02-04] MEDS: HYDROmorphone 2 MG Tab PO PRN (05:36)
[2019-02-04] MEDS: Sertraline 25 MG Tab PO SCH (08:26)
[2019-02-04] MEDS: Enoxaparin 40 MG/0.4 ML Syringe SUBCUT SCH (08:27)
--- NOTE | 2019-02-04 09:36 | PCM.DCSUM1 ---
Discharge Summary - Hospital Course Brief History: 64 yr old female with recent right TKA who presented with right knee pain after tripping and landing on her knee. Imaging in the ER suggested displaced distal femur fracture on the right. She was admitted for operative management. Diagnosis: Stroke: No - Discharge Data Discharge Date: 02/04/19 Discharge Disposition: DC/Tfer to SNF 03 Condition: Good - Referral to Home Health Primary Care Physician: KARLA Ospina - Discharge Diagnosis/Problem(s) (1) Femur fracture, right SNOMED Code(s): 76861509 ICD Code: S72.91XA - UNSP FRACTURE OF RIGHT FEMUR, INIT FOR CLOS FX Status : Acute Current Visit: Yes Qualifiers: Encounter type: initial encounter Femur location: distal, unspecified portion Fracture type: closed Fracture morphology: unspecified fracture morphology Qualified Code(s): S72.401A - Unspecified fracture of lower end of right femur, initial encounter for closed fracture (2) Status post open reduction with internal fixation of fracture SNOMED Code(s): 540910610 ICD Code: Z98.890 - OTHER SPECIFIED POSTPROCEDURAL STATES; Z87.81 - PERSONAL HISTORY OF (HEALED) TRAUMATIC FRACTURE Status: Acute Current Visit: Yes Problem Details: Femur right leg (3) Status post total right knee replacement SNOMED Code(s): 3000392607017, 9973174454649 ICD Code: Z96.651 - PRESENCE OF RIGHT ARTIFICIAL KNEE JOINT Status: Acute Current Visit: No - Patient Summary/Data Operative Procedure(s) Performed: Dr Valdovinos 01/29 - ORIF right distal femur with lateral frag plate Consults: Consultations 01/28/19 22:26 Consult to Physician [CONS] Routine Consulting Provider: Jose Valdovinos Call Completed to Consulting Physician: Francine 01/29/19 19:06 PT Evaluation and Treatment [CONS] Routine Please Evaluate and Treat. PT Reason for Consult: Post op Ortho Surgery Pending Discharge: Yes Discharge Disposition: Detention Facility Special Instructions: TTWB on right leg This query below is only for informational purposes and is not editable. Admission Diagnosis/Problem: Fracture of femur 02/02/19 10:02 OT Evaluation and Treatment [CONS] Routine Please Evaluate and Treat. OT Reason for Consult: Discharge Planning Pending Discharge: Yes This query below is only for informational purposes and is not editable. Admission Diagnosis/Problem: Fracture of femur Hospital Course: Sena presented to the emergency room with right knee pain after tripping and falling and landing on her right knee. Imaging in the emergency room suggested a displaced supracondylar fracture of the right distal femur. She was admitted to the hospital with the plan for surgical intervention the next morning. The morning after admission she did have an uneventful surgery to repair the fracture. This required an open reduction and internal fixation with a lateral fragment plate. Postoperative course has been uneventful. Her pain has been well -controlled utilizing oral medications. She has been able to slowly make progress with ambulation but has remains toe-touch weightbearing. The patient felt that with her recent knee replacement surgery she would best benefit from either acute or subacute rehabilitation. Her hospital stay was prolonged by 2 days because of difficulty finding a rehabilitation setting. She did not qualify for acute rehabilitation and has been referred to subacute rehabilitation. Her hemoglobin did drop from 12 preoperatively to 8.2 postoperatively but her vital signs have all been stable. Her pain is been very well-controlled using acetaminophen and hydromorphone. She is stable and safe for discharge at this time. - Patient Instructions Diet: Regular Diet as Tolerated Activity: As Tolerated Showering/Bathing: May Shower Wound/Incision Care: Keep Operative Site/Wound Site Clean and Dry Notify Provider of: Fever, Increased Pain, Swelling and Redness, Drainage Other/Special Instructions: 1. Referral to PT and OT for strengthening after distal femur fracture. 2. FULL CODE. 3. Toe touch weight bearing right leg until follow up with Dr Valdovinos - Discharge Plan *PRESCRIPTION DRUG MONITORING PROGRAM REVIEWED*: Not Applicable *COPY OF PRESCRIPTION DRUG MONITORING REPORT IN PATIENT LISA: Not Applicable Prescriptions/Med Rec: Acetaminophen [Tylenol] 650 mg PO Q4H PRN #100 tablet PRN Reason: Pain/Fever Enoxaparin [Lovenox] 40 mg SUBCUT DAILY #20 syringe HYDROmorphone [Dilaudid] 2 mg PO Q3H PRN #60 tablet PRN Reason: Pain (Moderate 4-6) Sennosides/Docusate Sodium [Senna-S] 1 each PO BID #60 tablet Home Medications: Home Meds Sertraline [Zoloft] 25 mg PO QPM 10/01/18 [History] Metoprolol Succinate 25 mg PO DAILY 12/15/18 [History] Sertraline [Zoloft] 12.5 mg PO QAM 12/15/18 [History] Acetaminophen [Tylenol] 650 mg PO Q4H PRN #100 tablet 02/04/19 [Rx] Enoxaparin [Lovenox] 40 mg SUBCUT DAILY #20 syringe 02/04/19 [Rx] HYDROmorphone [Dilaudid] 2 mg PO Q3H PRN #60 tablet 02/04/19 [Rx] Sennosides/Docusate Sodium [Senna-S] 1 each PO BID #60 tablet 02/04/19 [Rx] Oxygen Therapy Mode: Room Air Referrals: Mali Amaro PA [Primary Care Provider] - - Discharge Summary/Plan Comment DC Time >30 min.: Yes (40 - new [facility] discharge ) - Patient Data Vitals - Most Recent: Last Vital Signs Temp 36.9 C 02/04/19 07:40 Pulse 85 02/04/19 07:40 Resp 18 02/04/19 07:40 BP 151/78 H 02/04/19 07:40 Pulse Ox 96 02/04/19 07:40 Weight - Most Recent: 113.398 kg I&O - Last 24 hours: Intake & Output 02/03/19 02/04/19 02/04/19 22:59 06:59 14:59 Output Total 250 1050 600 Balance -250 -1050 -600 Lab Results - Last 24 hrs: Laboratory Results - last 24 hr 02/03/19 Range/Units 11:12 Hgb 8.2 L (12.0-15.0) g/dL Med Orders - Current: Current Medications Acetaminophen (Tylenol) 650 mg PO Q4H PRN PRN Reason: Fever Last Admin: 02/04/19 05:36 Dose: 650 mg Enoxaparin Sodium (Lovenox) 40 mg SUBCUT DAILY DOT Last Admin: 02/04/19 08:27 Dose: 40 mg Hydromorphone HCl (Dilaudid) 2 mg PO Q3H PRN PRN Reason: Pain (moderate 4-6) Last Admin: 02/04/19 05:36 Dose: 2 mg Promethazine HCl 6.25 mg/ (Sodium Chloride) 50.25 mls @ 200 mls/hr IV Q6H PRN PRN Reason: Nausea/Vomiting Metoprolol Succinate (Toprol Xl) 25 mg PO BEDTIME [facility] Last Admin: 02/03/19 20:54 Dose: 25 mg Morphine Sulfate (Morphine) 2 mg IVPUSH Q1H PRN PRN Reason: Pain (severe 7-10) Last Admin: 01/29/19 23:25 Dose: 2 mg Pantoprazole Sodium (Protonix) 40 mg PO BEDTIME [facility] Last Admin: 02/03/19 20:53 Dose: 40 mg Senna/Docusate Sodium (Senna Plus) 1 tab PO BID PRN PRN Reason: Constipation Last Admin: 01/31/19 08:11 Dose: 1 tab Sertraline HCl (Zoloft) 12.5 mg PO DAILY [facility] Last Admin: 02/04/19 08:26 Dose: 12.5 mg Sertraline HCl (Zoloft) 25 mg PO BEDTIME [facility] Last Admin: 02/03/19 20:54 Dose: 25 mg Tramadol HCl (Ultram) 50 mg PO Q4H PRN PRN Reason: Pain (mild 1-3) Last Admin: 01/30/19 08:33 Dose: 50 mg Discontinued Medications Fentanyl (Sublimaze) Confirm Administered Dose 100 mcg .ROUTE .STK-MED ONE Stop: 01/29/19 13:22 Sodium Chloride (Normal Saline) 1,000 mls @ 150 mls/hr IV ASDIRECTED [facility] Last Admin: 01/30/19 00:56 Dose: 150 mls/hr Clindamycin Phosphate 900 mg/ (Sodium Chloride) 106 mls @ 200 mls/hr IV ONETIME ONE Stop: 01/29/19 16:01 Last Admin: 01/29/19 16:48 Dose: Not Given Lactated Ringer's (Ringers, Lactated) Confirm Administered Dose 1,000 mls @ as directed .ROUTE .STK-MED ONE Stop: 01/29/19 17:27 Clindamycin Phosphate 900 mg/ (Sodium Chloride) 106 mls @ 200 mls/hr IV Q8H DOT Stop: 01/30/19 16:32 Last Admin: 01/30/19 16:46 Dose: 200 mls/hr Sodium Chloride (Normal Saline) 1,000 mls @ 75 mls/hr IV ASDIRECTED [facility] Last Admin: 01/31/19 08:14 Dose: 75 mls/hr Metoprolol Succinate (Toprol Xl) 25 mg PO DAILY [facility] Last Admin: 01/28/19 23:33 Dose: 25 mg Midazolam HCl (Versed 1 Mg/Ml) Confirm Administered Dose 2 mg .ROUTE .STK-MED ONE Stop: 01/29/19 13:23 Morphine Sulfate (Morphine) 2 mg IVPUSH Q4H PRN PRN Reason: Pain (severe 7-10) Last Admin: 01/29/19 22:15 Dose: 2 mg Ondansetron HCl (Zofran) 4 mg IVPUSH ONETIME ONE Stop: 01/28/19 22:25 Last Admin: 01/28/19 22:27 Dose: 4 mg Ondansetron HCl (Zofran) Confirm Administered Dose 4 mg .ROUTE .STK-MED ONE Stop: 01/28/19 22:26 Last Admin: 01/28/19 22:33 Dose: Not Given Pantoprazole Sodium (Protonix Iv) 40 mg IV Q24H [facility] Last Admin: 01/30/19 21:35 Dose: 40 mg Povidone Iodine (Betadine 10% Soln) Confirm Administered Dose 1 ml .ROUTE .STK- MED ONE Stop: 01/29/19 14:16 Propofol (Diprivan 20 Ml) Confirm Administered Dose 200 mg .ROUTE .STK-MED ONE Stop: 01/29/19 13:22 Propofol (Diprivan 20 Ml) Confirm Administered Dose 200 mg .ROUTE .STK-MED ONE Stop: 01/29/19 17:15 Propofol (Diprivan 20 Ml) Confirm Administered Dose 200 mg .ROUTE .STK-MED ONE Stop: 01/29/19 18:25 Sertraline HCl (Zoloft) 25 mg PO BEDTIME [facility] Sugammadex Sodium (Bridion) Confirm Administered Dose 200 mg .ROUTE .STK-MED ONE Stop: 01/29/19 13:33 - Exam Quality Assessment: Denies: Supplemental Oxygen General: Reports: Alert, Oriented, Cooperative, No Acute Distress Lungs: Reports: Normal Respiratory Effort GI/Abdominal Exam: Soft, No Distention Psy/Mental Status: Reports: Alert, Normal Affect
== END 2019-02-04 12:05 | DRG 481 ==
LOC: JP.ED 21:07 → JP.MS 22:26
PROVIDERS: ADMIT Family Medicine; ATTEND Internal Medicine
PROC: 0QSB04Z Reposition Right Lower Femur with Internal Fixation Device, Open Approach (ICD-10-PCS; principal; 2019-01-29)
DX: S72.451A Displaced supracondylar fracture without intracondylar extension of lower end of right femur, initial encounter for closed fracture (principal); M97.11XA Periprosthetic fracture around internal prosthetic right knee joint, initial encounter; D62 Acute posthemorrhagic anemia; Z68.42 Body mass index [BMI] 45.0-49.9, adult; R07.89 Other chest pain; I10 Essential (primary) hypertension; G43.909 Migraine, unspecified, not intractable, without status migrainosus; F32.9 Major depressive disorder, single episode, unspecified; E66.9 Obesity, unspecified; F41.9 Anxiety disorder, unspecified; Z88.5 Allergy status to narcotic agent; Z98.890 Other specified postprocedural states; Z87.81 Personal history of (healed) traumatic fracture; Z98.51 Tubal ligation status; Z88.1 Allergy status to other antibiotic agents; Z88.2 Allergy status to sulfonamides; Z88.8 Allergy status to other drugs, medicaments and biological substances; Z79.899 Other long term (current) drug therapy; W01.0XXA Fall on same level from slipping, tripping and stumbling without subsequent striking against object, initial encounter; Y99.8 Other external cause status; Y92.511 Restaurant or cafe as the place of occurrence of the external cause
CPT/HCPCS: 36415; 51702; 71101-RT; 73010-RT; 73200-RT; 73560-RT; 76000; 80048; 80053; 81001; 85018; 85025; 86850; 86900; 86901; 87086; 97110-GP; 97162-GP; 97165-GO; 97530-GP; 97535-GP; 99284-25; A9270-GY; C1713; C9113; J1650; J2250; J2270; J2405; J2704; J3010; J3490; J7030; J7120

== ENCOUNTER 2021-05-05 08:59 | Day surgery (SDC) | payer MEDICARE, OTHER ==
[2021-05-05] MEDS ORDERED: fentaNYL 100 MCG/2 ML SDV ONE (09:36)
[2021-05-05] MEDS ORDERED: Midazolam 1 MG/ML 2 ML SDV ONE (09:36)
[2021-05-05] MEDS ORDERED: Propofol 200 MG/20 ML SDV ONE (09:37)
[2021-05-05] MEDS ORDERED: Sodium Chloride 0.9% 1,000 ML IV SCH (10:00)
--- NOTE | 2021-05-05 12:01 | OR ---
DATE OF PROCEDURE: 05/05/2021 SURGEON: Kaden Camacho MD PROCEDURE: Colonoscopy. FINDINGS: Diverticulosis, mild to moderate, mostly limited to sigmoid colon with no evidence of diverticulitis or bleeding. COMPLICATIONS: None. CLERICAL SUPERVISOR: None. PREOPERATIVE DIAGNOSIS: Screening colonoscopy. POSTOPERATIVE DIAGNOSIS: Screening colonoscopy. RISKS: Risks, benefits, alternatives, and limitations including, but not limited to infection, bleeding, perforation, false positives and false negatives were explained to the patient who wished to proceed. PROCEDURE IN DETAIL: The patient was placed in left lateral decubitus position. Digital rectal exam was performed without abnormality. Scope was introduced and advanced atraumatically to the ileocecal valve. A photo was taken. The scope was brought back to the ascending, transverse, descending colon, and retroflexed. No evidence of old or new blood. No masses. No polyps. Diverticulosis described as mild, limited to sigmoid colon without evidence of diverticulitis or bleeding. Greater than 8 minutes was spent removing the scope. Prep was acceptable, approximately 90% of luminal surface could be seen. The patient tolerated procedure well. Kaden Camacho MD /[id number]
== END 2021-05-05 11:48 | disposition home or self-care (01) ==
LOC: JP.SDS 08:59
PROVIDERS: ATTEND Surgery
DX: Z12.11 Encounter for screening for malignant neoplasm of colon (principal); K57.30 Diverticulosis of large intestine without perforation or abscess without bleeding; I10 Essential (primary) hypertension; E66.01 Morbid (severe) obesity due to excess calories; Z68.43 Body mass index [BMI] 50.0-59.9, adult
CPT/HCPCS: G0121; J2250; J2704; J3010; J7030